=== PATIENT | female | born 1950 | race African-American/Black ===

== ENCOUNTER 2017-10-25 10:16 | Outpatient (CLI) | payer MEDICARE, OTHER | END 2017-10-25 10:17 | disposition home or self-care (01) | LOC: BICMAMMO 10:16 | PROVIDERS: ATTEND Family Medicine | DX: Z12.31 Encounter for screening mammogram for malignant neoplasm of breast (principal); Z78.0 Asymptomatic menopausal state; M85.80 Other specified disorders of bone density and structure, unspecified site | CPT/HCPCS: 77063; 77067; 77080 ==

== ENCOUNTER 2018-11-01 10:54 | Outpatient (CLI) | payer MEDICARE ==
--- NOTE | 2018-11-15 15:55 | MMO ---
Bilateral MAMMO Bilat Screen [facility]. CLINICAL HISTORY: Patient is 67 years old and is seen for screening. The patient has no family history of breast cancer. The patient has a history of right Mastectomy - malignant. VIEWS: The views performed were: left craniocaudal with tomosynthesis and left mediolateral oblique with tomosynthesis. FILMS COMPARED: The present examination has been compared to prior imaging studies performed at [facility] on 10/25/2017, at [facility] on 06/11/2014, and at [facility] on 03/04/2006 and 02/23/2010. MAMMOGRAM FINDINGS: The breast is heterogeneously dense, which could obscure a lesion on mammography. There are stable benign appearing calcifications seen in the left breast. There are no suspicious masses, suspicious calcifications, or new areas of architectural distortion. IMPRESSION: THERE IS NO MAMMOGRAPHIC EVIDENCE OF MALIGNANCY. A ROUTINE FOLLOW-UP MAMMOGRAM IN 1 YEAR IS RECOMMENDED. THE RESULTS OF THIS EXAM WERE SENT TO THE PATIENT. ACR BI-RADS Category 2 - Benign finding MAMMOGRAPHY NOTE: 1. A negative mammogram report should not delay a biopsy if a dominant of clinically suspicious mass is present. 2. Approximately 10% to 15% of breast cancers are not detected by mammography. 3. Adenosis and dense breasts may obscure an underlying neoplasm.
== END 2018-11-01 10:55 | disposition home or self-care (01) ==
LOC: BICMAMMO 10:54
PROVIDERS: ATTEND Family Medicine
DX: Z12.31 Encounter for screening mammogram for malignant neoplasm of breast (principal); Z90.11 Acquired absence of right breast and nipple
CPT/HCPCS: 77063; 77067

== ENCOUNTER 2019-12-17 00:35 | Inpatient (IN) | payer MEDICARE ==
[2019-12-17 01:15] LABS: Bacteria/HPF 4+ HPF (None Seen); Bilirubin Negative (Negative); Blood, Urine 2+ (Negative); Clarity Turbid (Clear); Glucose, Urine (Dipstick) Normal (Negative); Leukocyte 500 Leu/uL (Negative); Nitrite Negative (Negative); Protein, Urine (Dipstick) 100 mg/dL (Neg-Trace); Squamous Epithelial 0-3 HPF (0-3); WBC/HPF Greater than 50 HPF (0-3)
[2019-12-17 01:38] LABS: Anion Gap 14 mmol/L (10-20); BUN (Urea Nitrogen) 30 mg/dL (9.8-20.1); CK (CPK) 2073 U/L (29-168); Calc. Creatinine Clearance 0 mL/min (70-130); Calcium 7.5 mg/dL (7.8-10.44); Carbon Dioxide 19 mmol/L (23-31); Chloride 99 mmol/L (98-107); Estimated GFR-MDRD 31; Glucose 176 mg/dL (80-115); Potassium 3.3 mmol/L (3.5-5.1); Sodium 129 mmol/L (136-145)
[2019-12-17] MEDS ORDERED: cefTRIAXone\\ROCEPHIN 1 GM VIAL ONE (01:46)
[2019-12-17] MEDS ORDERED: Acetaminophen 325 MG TAB PO PRN (03:13)
[2019-12-17] MEDS ORDERED: Acetaminophen 650 MG Suppository PR PRN (03:13)
[2019-12-17] MEDS ORDERED: Sodium Chloride 0.9% 1,000 ML IV SCH (03:30)
[2019-12-17] MEDS ORDERED: cefTRIAXone\\ROCEPHIN 1 GM in Sodium Chloride 0.9% 100 ML IVPB SCH (04:00)
--- NOTE | 2019-12-17 04:21 | PDOC.HHP ---
Hospitalist HPI - History of Present Illness confusion History of Present Illness: Case of an 68y/o female with pmhx of htn seizures and hx of breast cancer who was brought here from freestanding ed due to confusion chills and fever. patient is a poor historian. patient states she was on her usual state of health until yesterday when she refers started with abdominal pain 10/10 in periumbilical area, non radiating not associated with nause vomiting or diarrhea , pt does refers some dysuaria. apparently at the ED patient was confused and disoriented but during my evaluation patient was oax3. patient was dx w uti and hospitalist was called for further evaluation and management Hospitalist ROS - Review of Systems All other systems reviewed; all pertinent +/- noted in HPI/Subj - Medication Medications: Active Medications Generic Name Dose Route Start Last Admin Trade Name Freq PRN Reason Stop Dose Admin Acetaminophen 650 mg 12/17/19 03:13 12/17/19 04:11 Tylenol PO 650 mg Q4H PRN Administration Headache/Fever/Mild Pain (1-3) Sodium Chloride 1,000 mls @ 100 mls/hr 12/17/19 03:30 12/17/19 04:07 Normal Saline 0.9% IV 1,000 mls .Q10H ARMANDO Administration Ceftriaxone Sodium 1 gm/ 100 mls @ 200 mls/hr 12/17/19 04:00 12/17/19 04:07 Sodium Chloride IVPB 12/17/19 07:00 100 mls NOW ARMANDO Administration Hospitalist History - Past Medical History Cardiac: reports: HTN, Hyperlipidemia [employer] GRAIN: reports: Seizure - Past Surgical History Past Surgical History: reports: no pertinent history - Family History Family History: reports: cancer, hypertension - Social History Smoking Status: Never smoker Alcohol: reports: None Drugs: reports: none Living Situation: With Family Activity level: independent ambulation - Exam General Appearance: ill appearing Eye: PERRL, anicteric sclera ENT: normocephalic atraumatic, no oropharyngeal lesions Neck: supple, symmetric, no JVD, no thyromegaly Heart: RRR, no murmur, no gallops Respiratory: CTAB, no wheezes, no rales, no ronchi Gastrointestinal: soft, non-distended, normal bowel sounds, no hepatomegaly, tender to palpation Extremities: no cyanosis, no clubbing, no edema Skin: normal turgor, no lesions Neurological: cranial nerve grossly intact, normal sensation to touch Musculoskeletal: normal tone, normal strength, no muscle wasting Psychiatric: normal affect, normal behavior, A&O x 3, oriented to person Hospitalist Results - Labs Result Diagrams: 12/17/19 01:05 Lab results: Sodium 129 mmol/L (136-145) L 12/17/19 01:05 Potassium 3.3 mmol/L (3.5-5.1) L 12/17/19 01:05 Chloride 99 mmol/L (98-107) 12/17/19 01:05 Carbon Dioxide 19 mmol/L (23-31) L 12/17/19 01:05 BUN 30 mg/dL (9.8-20.1) H 12/17/19 01:05 Creatinine 1.91 mg/dL (0.6-1.1) H 12/17/19 01:05 Glucose 176 mg/dL (80-115) H 12/17/19 01:05 Calcium 7.5 mg/dL (7.8-10.44) L 12/17/19 01:05 Creatine Kinase 2073 U/L (29-168) H 12/17/19 01:05 Urine Ketones Negative mg/dL (Negative) 12/17/19 00:54 Urine Blood 2+ (Negative) A 12/17/19 00:54 Urine Nitrite Negative (Negative) 12/17/19 00:54 Ur Leukocyte Esterase 500 Saad/uL (Negative) A 12/17/19 00:54 Urine RBC 4-6 HPF (0-3) A 12/17/19 00:54 Urine WBC Greater than 50 HPF (0-3) A 12/17/19 00:54 Ur Squamous Epith Cells 0-3 HPF (0-3) 12/17/19 00:54 Urine Bacteria 4+ HPF (None Seen) A 12/17/19 00:54 - Radiology Interpretation CT scan - chest Additional Comment: no pe CT scan - abdomen Additional Comment: perinephric stranding Hospitalist H&P A/P - Problem (1) Sepsis Code(s): A41.9 - SEPSIS, UNSPECIFIED ORGANISM Status: Acute (2) UTI (urinary tract infection) Status: Acute (3) Hyponatremia Code(s): E87.1 - HYPO-OSMOLALITY AND HYPONATREMIA Status: Acute (4) KAY (acute kidney injury) Code(s): N17.9 - ACUTE KIDNEY FAILURE, UNSPECIFIED Status: Acute (5) Hx of seizure disorder Code(s): Z86.69 - PERSONAL HISTORY OF DIS OF THE NERVOUS SYS AND SENSE ORGANS Status: Acute - Plan Plan: sepsis / uti - pt with signs of sepsis w elevated wbc fever chills and confusion, started on ivfs, cultures were taken and started on rocephin for uti , f/u cultures hyponatremia - at 129, calculated osmalality seems to be normal, will order tsh , serum and urine osmolality. might be secondary to seizure medication, f/u bmps kay - creatinine at 1.9, will start on ivfs f/u cr and u/o hx seizures - continue home meds htn - continue home meds adjust as necessary
[2019-12-17 05:05] LABS: ALT (SGPT) 49 U/L (8-55); AST (SGOT) 88 U/L (5-34); Albumin 3.7 g/dL (3.4-4.8); Alkaline Phosphatase 188 U/L (40-110); Anion Gap 18 mmol/L (10-20); BUN (Urea Nitrogen) 30 mg/dL (9.8-20.1); Bilirubin, Total 0.9 mg/dL (0.2-1.2); Calc. Creatinine Clearance 0 mL/min (70-130); Calcium 8.2 mg/dL (7.8-10.44); Carbon Dioxide 19 mmol/L (23-31); Chloride 98 mmol/L (98-107); Estimated GFR-MDRD 29; Globulin 3.9 g/dL (2.4-3.5); Glucose 141 mg/dL (80-115); Magnesium 1.9 mg/dL (1.6-2.6); Potassium 4.4 mmol/L (3.5-5.1); Protein, Total 7.6 g/dL (6.0-8.3); Sodium 131 mmol/L (136-145)
[2019-12-17 05:40] LABS: Hemoglobin 12.1 g/dL (12.0-16.0); Mean Corpuscular HGB CONC 32.9 g/dL (32.0-36.0); Mean Corpuscular Hemoglobin 28.8 pg (27.0-31.0); Mean Corpuscular Volume 87.5 fL (78.0-98.0); Mean Platelet Volume 8.4 fL (7.4-10.4); Platelet Count 142 thou/uL (130-400); RBC Distribution Width 12.4 % (11.5-14.5); Red Blood Cell (RBC) Count 4.19 mill/uL (4.20-5.40)
[2019-12-17 06:13] LABS: Band 24 % (5-11); Lymphocytes 7 % (21-51); MDiff Complete? YES; Monocytes 5 % (0-10); Neutrophil 64 % (42-75); White Blood Cell (WBC) Count 9.9 thou/uL (4.8-10.8)
[2019-12-17] MEDS ORDERED: Bisacodyl 5 MG TAB PO PRN (07:41)
[2019-12-17] MEDS ORDERED: Calcium Carbonate 500 MG ChewTAB PO PRN (07:41)
[2019-12-17] MEDS ORDERED: Ondansetron PF 4 MG/2 ML Vial IVP PRN (07:41)
[2019-12-17] MEDS ORDERED: Sodium Chloride 0.65% Nasal 44 ML BOT EA NARE PRN (07:41)
[2019-12-17] MEDS ORDERED: Zolpidem Tartrate 5 MG TAB PO PRN (07:41)
[2019-12-17] MEDS ORDERED: hydrALAZINE 20 MG/ML VIAL SLOW IVP PRN (07:41)
[2019-12-17] MEDS ORDERED: HYDROcodone/Acetaminophen 5/325 mg Tablet PO PRN (07:41)
[2019-12-17] MEDS ORDERED: Senokot S 8.6-50 MG TAB PO PRN (07:41)
[2019-12-17] MEDS ORDERED: Diabetic Tussin 200 MG/10 ML UDCUP PO PRN (07:41)
[2019-12-17] MEDS ORDERED: Loratadine 10 MG TAB PO PRN (07:41)
[2019-12-17] MEDS ORDERED: Loperamide HCl 2 MG CAP PO PRN (07:41)
[2019-12-17] MEDS ORDERED: Ondansetron ODT 4 MG TAB SL PRN (07:41)
--- NOTE | 2019-12-17 08:11 | CT ---
PRELIMINARY REPORT/[facility]/EMERGENCY AFTER HOURS PROCEDURE EXAM: CTA Chest, CT Abdomen and Pelvis with Intravenous Contrast CLINICAL HISTORY: Patient here for evaluation of altered mental status. Patient just transferred here from a freestanding ED. Sounds like the last time that she is seen normal was on Tuesday. Patient w as found to be confused. Had an elevated CK and had a low-grade fever of 100.3. Patient was confused at the outside facility. Patient is ANO x4 here. Denies any cough. Denies any exposure to COVID. Bart es any shortness of breath. Is complaining of some abdominal pain. Denies any nausea vomiting. Pain i s sharp and in the periumbilical area. Does have a history of seizures but does not know she had a se izure. Does not believe so. Patient also had an elevated d-dimer but they did not scan her secondary to a creatinine of 1.9. TECHNIQUE: Axial CTA images of the chest and CT images of the abdomen and pelvis with intravenous con trast. Reformatted images were created and reviewed. CONTRAST: With; ISOVUE 370,100mL COMPARISON: None provided. FINDINGS: VASCULATURE: AORTA Scattered atherosclerotic calcifications of the aorta. PULMONARY ARTERIES No evidence of central or segmental pulmonary embolism is seen. CHEST: Lungs: Calcified granuloma in the right lung base. The lungs are otherwise clear. No parenchymal cons olidation. No pulmonary mass. Pleural spaces: No evidence of pneumothorax. No pleural effusion. Heart and mediastinum: No cardiomegaly. No significant pericardial effusion. ABDOMEN: LIVER Unremarkable. No mass. GALLBLADDER AND BILE DUCTS No calcified stone. No ductal dilation. PANCREAS Unremarkable. No ductal dilation. SPLEEN Unremarkable. ADRENAL No mass. KIDNEYS AND URETERS Bilateral perinephric stranding, which is nonspecific. Mild left greater than rig ht ureteral enhancement with perinephric stranding. No obstructing lesion or stone. Findings may repr esent an ascending urinary tract infection and correlation with urinalysis is recommended. STOMACH AND BOWEL Small hiatal hernia. Scattered colonic diverticula without evidence of diverticulitis. No bowel obstruction. APPENDIX Normal appendix. PELVIS: URINARY BLADDER Unremarkable. REPRODUCTIVE Status post hysterectomy. PERITONEUM No free fluid. No free air. LYMPH NODES No lymphadenopathy is evident. BONES AND SOFT TISSUES Degenerative changes of the spine. MISCELLANEOUS Status post right mastectomy. Coronary artery calcifications. IMPRESSION: No pulmonary embolism. No thoracic aortic aneurysm or dissection. Bilateral perinephric stranding, which is nonspecific. Mild left greater than right ureteral enhancement with perinephric stranding. No obstructing lesion or stone. Findings may represent an ascending urinary tract infectio n and correlation with urinalysis is recommended. ELECTRONICALLY SIGNED BY: Kay Marie MD December 17, 2019 2:24:59 AM CDT FINAL REPORT I agree with the preliminary report given by Dr. Kay Marie of [facility]. There are atel ectatic changes of scarring in the right middle lobe. POS: MZA
--- NOTE | 2019-12-17 08:17 | CT ---
PRELIMINARY REPORT/[facility]/EMERGENCY AFTER HOURS PROCEDURE EXAM: CTA Chest, CT Abdomen and Pelvis with Intravenous Contrast CLINICAL HISTORY: Patient here for evaluation of altered mental status. Patient just transferred here from a freestanding ED. Sounds like the last time that she is seen normal was on Tuesday. Patient w as found to be confused. Had an elevated CK and had a low-grade fever of 100.3. Patient was confused at the outside facility. Patient is ANO x4 here. Denies any cough. Denies any exposure to COVID. Bart es any shortness of breath. Is complaining of some abdominal pain. Denies any nausea vomiting. Pain i s sharp and in the periumbilical area. Does have a history of seizures but does not know she had a se izure. Does not believe so. Patient also had an elevated d-dimer but they did not scan her secondary to a creatinine of 1.9. TECHNIQUE: Axial CTA images of the chest and CT images of the abdomen and pelvis with intravenous con trast. Reformatted images were created and reviewed. CONTRAST: With; ISOVUE 370,100mL COMPARISON: None provided. FINDINGS: VASCULATURE: AORTA Scattered atherosclerotic calcifications of the aorta. PULMONARY ARTERIES No evidence of central or segmental pulmonary embolism is seen. CHEST: Lungs: Calcified granuloma in the right lung base. The lungs are otherwise clear. No parenchymal cons olidation. No pulmonary mass. Pleural spaces: No evidence of pneumothorax. No pleural effusion. Heart and mediastinum: No cardiomegaly. No significant pericardial effusion. ABDOMEN: LIVER Unremarkable. No mass. GALLBLADDER AND BILE DUCTS No calcified stone. No ductal dilation. PANCREAS Unremarkable. No ductal dilation. SPLEEN Unremarkable. ADRENAL No mass. KIDNEYS AND URETERS Bilateral perinephric stranding, which is nonspecific. Mild left greater than ri ght ureteral enhancement with perinephric stranding. No obstructing lesion or stone. Findings may rep resent an ascending urinary tract infection and correlation with urinalysis is recommended. STOMACH AND BOWEL Small hiatal hernia. Scattered colonic diverticula without evidence of diverticuli tis. No bowel obstruction. APPENDIX Normal appendix. PELVIS: URINARY BLADDER Unremarkable. REPRODUCTIVE Status post hysterectomy. PERITONEUM No free fluid. No free air. LYMPH NODES No lymphadenopathy is evident. BONES AND SOFT TISSUES Degenerative changes of the spine. MISCELLANEOUS Status post right mastectomy. Coronary artery calcifications. IMPRESSION: No pulmonary embolism. No thoracic aortic aneurysm or dissection. Bilateral perinephric stranding, which is nonspecific. Mild left greater than right ureteral enhancem ent with perinephric stranding. No obstructing lesion or stone. Findings may represent an ascending u rinary tract infection and correlation with urinalysis is recommended. ELECTRONICALLY SIGNED BY: Kay Marie MD December 17, 2019 2:24:59 AM CDT FINAL REPORT CT ABDOMEN AND PELVIS WITH IV CONTRAST: I agree with the preliminary report given by Dr. Kay Marie of [facility]. POS: MAUREEN
[2019-12-17] MEDS ORDERED: Iopamidol 370 76% 100 ML VIAL ONE (09:20)
[2019-12-17] MEDS: Famotidine 20 MG TAB PO SCH (09:40)
[2019-12-17] MEDS: Enoxaparin Sodium 30 MG/0.3 ML SYRINGE SC SCH (09:40)
[2019-12-17] MEDS: Saccharomyces boulardii 250 MG CAP PO SCH (09:40)
[2019-12-17] MEDS: Sodium Bicarbonate Tab 325 MG TAB PO SCH ×2 (09:40→20:24)
--- NOTE | 2019-12-17 10:13 | PDOC.HOSPP ---
- Subjective Encounter Date: 12/17/19 Encounter Time: 10:00 Subjective: Patient seen and examined. pt is weak, she has fever, No overnight events - Objective Vital Signs & Weight: Vital Signs (12 hours) Temp Pulse Resp BP BP Pulse Ox 12/17/19 08:10 98.5 F 83 20 120/65 93 L 12/17/19 06:00 100.6 F H 12/17/19 03:46 100.3 F H 118 H 22 H 129/93 H 96 Weight Weight 234 lb 8 oz I&O: 12/16/19 12/17/19 12/18/19 06:59 06:59 06:59 Intake Total 720 Balance 720 Result Diagrams: 12/17/19 04:17 12/17/19 04:17 Radiology Reviewed by me: Yes EKG Reviewed by me: Yes Hospitalist ROS - Review of Systems Constitutional: reports: fever, weakness. denies: chills, sweats, malaise, other ENT: denies: ear pain, ear discharge, nose pain, nose discharge, nose congestion , mouth pain, mouth swelling, throat pain, throat swelling, other Respiratory: denies: cough, dry, shortness of breath, hemoptysis, SOB with excertion, pleuritic pain, sputum, wheezing, other Cardiovascular: denies: chest pain, palpitations, orthopnea, paroxysmal noc. dyspnea, edema, light headedness, other Gastrointestinal: denies: nausea, vomiting, abdominal pain, diarrhea, constipation, melena, hematochezia, other Genitourinary: reports: dysuria, frequency. denies: incontinence, hematuria, retention, other Musculoskeletal: denies: neck pain, shoulder pain, arm pain, back pain, hand pain, leg pain, foot pain, other Skin: denies: rash, lesions, rosenda, bruising, other - Medication Medications: Active Medications Generic Name Dose Route Start Last Admin Trade Name Freq PRN Reason Stop Dose Admin Acetaminophen 650 mg 12/17/19 03:13 12/17/19 04:11 Tylenol PO 650 mg Q4H PRN Administration Headache/Fever/Mild Pain (1-3) Enoxaparin Sodium 30 mg 12/17/19 09:00 12/17/19 09:40 Lovenox SC 30 mg 0900 ARMANDO Administration Famotidine 20 mg 12/17/19 09:00 12/17/19 09:40 Pepcid PO 20 mg DAILY ARMANDO Administration Saccharomyces Boulardii 250 mg 12/17/19 09:00 12/17/19 09:40 Florastor PO 250 mg DAILY ARMANDO Administration Sodium Bicarbonate 650 mg 12/17/19 09:00 12/17/19 09:40 Bicarbonate, Sodium PO 650 mg BID ARMANDO Administration - Exam General Appearance: NAD, awake alert Eye: PERRL, anicteric sclera ENT: normocephalic atraumatic, no oropharyngeal lesions Neck: supple, symmetric, no JVD, no thyromegaly Heart: RRR, no murmur, no gallops, no rubs Respiratory: CTAB, no wheezes, no rales, no ronchi Gastrointestinal: soft, non-tender, non-distended, normal bowel sounds Extremities: no cyanosis, no clubbing, no edema Skin: normal turgor, no lesions Neurological: no focal deficits Musculoskeletal: normal tone, normal strength Psychiatric: normal affect, normal behavior Hosp A/P (1) Sepsis Code(s): A41.9 - SEPSIS, UNSPECIFIED ORGANISM Status: Acute Qualifiers: Sepsis acute organ dysfunction status: with acute organ dysfunction Severe sepsis acute organ dysfunction type: acute renal failure Severe sepsis shock status: without septic shock (2) Hypokalemia Code(s): E87.6 - HYPOKALEMIA Status: Acute (3) Rhabdomyolysis Code(s): M62.82 - RHABDOMYOLYSIS Status: Acute (4) Abnormal LFTs Code(s): R94.5 - ABNORMAL RESULTS OF LIVER FUNCTION STUDIES Status: Acute (5) KAY (acute kidney injury) Code(s): N17.9 - ACUTE KIDNEY FAILURE, UNSPECIFIED Status: Acute (6) Hyponatremia Code(s): E87.1 - HYPO-OSMOLALITY AND HYPONATREMIA Status: Acute (7) UTI (urinary tract infection) Status: Acute Qualifiers: Urinary tract infection type: acute cystitis Hematuria presence: without hematuria Qualified Code(s): N30.00 - Acute cystitis without hematuria (8) Obesity (BMI 30-39.9) Code(s): E66.9 - OBESITY, UNSPECIFIED Status: Chronic - Plan old records reviewed/req, continue antibiotics, PT/OT change to inpt status continue rocephin continue IVF repeat labs start PT/OT
[2019-12-17] MEDS: Sodium Chloride 0.45% 1,000 ML IV SCH ×2 (20:12→20:43)
[2019-12-17 20:17] VITALS: BMI 36.6
[2019-12-17] MEDS: cefTRIAXone\\ROCEPHIN 2 GM in Sodium Chloride 0.9% 100 ML IVPB SCH (22:32)
[2019-12-18] MEDS: Sodium Chloride 0.45% 1,000 ML IV SCH ×3 (05:28→16:53)
[2019-12-18 06:50] LABS: #Lymphocytes 0.8 thou/uL (1.20-3.40); %Basophils 0.3 % (0.0-1.0); %Eosinophils 0.7 % (0.0-10.0); %Lymphocytes 11.1 % (21.0-51.0); %Monocytes 14.6 % (0.0-10.0); %Neutrophils 73.3 % (42.0-75.0); Hemoglobin 10.4 g/dL (12.0-16.0); Mean Corpuscular HGB CONC 32.8 g/dL (32.0-36.0); Mean Corpuscular Hemoglobin 28.7 pg (27.0-31.0); Mean Corpuscular Volume 87.6 fL (78.0-98.0); Mean Platelet Volume 7.8 fL (7.4-10.4); Platelet Count 157 thou/uL (130-400); RBC Distribution Width 12.5 % (11.5-14.5); Red Blood Cell (RBC) Count 3.63 mill/uL (4.20-5.40); White Blood Cell (WBC) Count 6.9 thou/uL (4.8-10.8)
[2019-12-18 07:02] LABS: Lactic Acid 0.9 mmol/L (0.5-2.2)
[2019-12-18 07:08] LABS: ALT (SGPT) 36 U/L (8-55); AST (SGOT) 68 U/L (5-34); Alkaline Phosphatase 146 U/L (40-110); Anion Gap 14 mmol/L (10-20); BUN (Urea Nitrogen) 25 mg/dL (9.8-20.1); Bilirubin, Total 0.4 mg/dL (0.2-1.2); CK (CPK) 1454 U/L (29-168); Calc. Creatinine Clearance 56 mL/min (70-130); Calcium 7.9 mg/dL (7.8-10.44); Carbon Dioxide 20 mmol/L (23-31); Chloride 99 mmol/L (98-107); Estimated GFR-MDRD 39; Globulin 3.4 g/dL (2.4-3.5); Glucose 126 mg/dL (80-115); Phosphorus 2.3 mg/dL (2.3-4.7); Potassium 3.2 mmol/L (3.5-5.1); Protein, Total 6.4 g/dL (6.0-8.3); Sodium 130 mmol/L (136-145)
[2019-12-18] MEDS ORDERED: Potassium Chloride 20 MEQ TAB PO SCH (07:30)
[2019-12-18] MEDS: Famotidine 20 MG TAB PO SCH (08:50)
[2019-12-18] MEDS: Saccharomyces boulardii 250 MG CAP PO SCH (08:50)
[2019-12-18] MEDS: Enoxaparin Sodium 30 MG/0.3 ML SYRINGE SC SCH (08:51)
[2019-12-18] MEDS: Sodium Bicarbonate Tab 325 MG TAB PO SCH ×2 (08:51→20:52)
[2019-12-18] MEDS ORDERED: Prevnar 13-Val Conj/PF 0.5 ML SYRINGE IM ONE (09:00)
--- NOTE | 2019-12-18 09:35 | PDOC.HOSPP ---
- Subjective Encounter Date: 12/18/19 Encounter Time: 07:10 Subjective: Patient seen and examined. No new complaints. No overnight events - Objective Vital Signs & Weight: Vital Signs (12 hours) Temp Pulse Resp BP BP Pulse Ox 12/18/19 04:00 99.4 F 80 16 137/62 94 L 12/18/19 00:00 99.6 F 91 20 155/72 H 96 Weight Weight 234 lb I&O: 12/17/19 12/18/19 12/19/19 06:59 06:59 06:59 Intake Total 705 664 2389 Output Total 500 Balance 720 -260 1250 Result Diagrams: 12/18/19 06:24 12/18/19 06:24 Hospitalist ROS - Review of Systems ENT: denies: ear pain, ear discharge, nose pain, nose discharge, nose congestion , mouth pain, mouth swelling, throat pain, throat swelling, other Respiratory: denies: cough, dry, shortness of breath, hemoptysis, SOB with excertion, pleuritic pain, sputum, wheezing, other Cardiovascular: denies: chest pain, palpitations, orthopnea, paroxysmal noc. dyspnea, edema, light headedness, other Gastrointestinal: denies: nausea, vomiting, abdominal pain, diarrhea, constipation, melena, hematochezia, other Genitourinary: denies: dysuria, frequency, incontinence, hematuria, retention, other Musculoskeletal: denies: neck pain, shoulder pain, arm pain, back pain, hand pain, leg pain, foot pain, other - Medication Medications: Active Medications Generic Name Dose Route Start Last Admin Trade Name Freq PRN Reason Stop Dose Admin Acetaminophen 650 mg 12/17/19 03:13 12/17/19 04:11 Tylenol PO 650 mg Q4H PRN Administration Headache/Fever/Mild Pain (1-3) Enoxaparin Sodium 30 mg 12/17/19 09:00 12/18/19 08:51 Lovenox SC 30 mg 0900 ARMANDO Administration Famotidine 20 mg 12/17/19 09:00 12/18/19 08:50 Pepcid PO 20 mg DAILY ARMANDO Administration Ceftriaxone Sodium 2 gm/ 100 mls @ 200 mls/hr 12/17/19 22:00 12/17/19 22:32 Sodium Chloride IVPB 100 mls 2200 ARMANDO Administration Sodium Chloride 1,000 mls @ 125 mls/hr 12/17/19 07:45 12/18/19 08:52 1/2 Normal Saline IV 1,000 mls .Q8H ARMANDO Administration Potassium Chloride 40 meq 12/18/19 07:30 12/18/19 08:51 K-Dur PO 12/18/19 10:00 40 meq NOW ARMANDO Administration Saccharomyces Boulardii 250 mg 12/17/19 09:00 12/18/19 08:50 Florastor PO 250 mg DAILY ARMANDO Administration Sodium Bicarbonate 650 mg 12/17/19 09:00 12/18/19 08:51 Bicarbonate, Sodium PO 650 mg BID ARMANDO Administration Sodium Chloride 10 ml 12/18/19 09:00 12/18/19 08:51 Flush - Normal Saline IVF 10 ml Q12HR ARMANDO Administration - Exam General Appearance: NAD, awake alert Eye: PERRL, anicteric sclera ENT: normocephalic atraumatic, no oropharyngeal lesions Neck: supple, symmetric, no JVD, no thyromegaly Heart: RRR, no murmur, no gallops, no rubs Respiratory: CTAB, no wheezes, no rales, no ronchi Gastrointestinal: soft, non-tender, non-distended, normal bowel sounds Extremities: no cyanosis, no clubbing, no edema Skin: normal turgor, no lesions Neurological: no focal deficits Musculoskeletal: normal tone, normal strength Psychiatric: normal affect, normal behavior Hosp A/P (1) Sepsis Code(s): A41.9 - SEPSIS, UNSPECIFIED ORGANISM Status: Acute Qualifiers: Sepsis acute organ dysfunction status: with acute organ dysfunction Severe sepsis acute organ dysfunction type: acute renal failure Severe sepsis shock status: without septic shock (2) Hypokalemia Code(s): E87.6 - HYPOKALEMIA Status: Acute (3) Rhabdomyolysis Code(s): M62.82 - RHABDOMYOLYSIS Status: Acute (4) Abnormal LFTs Code(s): R94.5 - ABNORMAL RESULTS OF LIVER FUNCTION STUDIES Status: Acute (5) KAY (acute kidney injury) Code(s): N17.9 - ACUTE KIDNEY FAILURE, UNSPECIFIED Status: Acute (6) Hyponatremia Code(s): E87.1 - HYPO-OSMOLALITY AND HYPONATREMIA Status: Acute (7) UTI (urinary tract infection) Status: Acute Qualifiers: Urinary tract infection type: acute cystitis Hematuria presence: without hematuria Qualified Code(s): N30.00 - Acute cystitis without hematuria (8) Obesity (BMI 30-39.9) Code(s): E66.9 - OBESITY, UNSPECIFIED Status: Chronic - Plan old records reviewed/req, continue antibiotics change to inpt status continue rocephin continue IVF repeat labs start PT/OT 12/18/19 today will continue IVF await culture result will replace potassium continue rocephin she wants to go home will decide later if stays will repeat labs tomorrow
[2019-12-18] MEDS: Simvastatin 20 MG TAB PO SCH (20:52)
[2019-12-18] MEDS: levETIRAcetam 500 MG TAB PO SCH (20:52)
[2019-12-18] MEDS: Ezetimibe 10 MG TAB PO SCH (20:52)
[2019-12-18] MEDS: busPIRone HCl 10 MG TAB PO SCH (20:53)
[2019-12-18] MEDS: cefTRIAXone\\ROCEPHIN 2 GM in Sodium Chloride 0.9% 100 ML IVPB SCH (21:00)
[2019-12-19] MEDS: Sodium Chloride 0.45% 1,000 ML IV SCH ×2 (01:56→08:47)
[2019-12-19 06:22] LABS: #Basophils 0.1 thou/uL (0.0-0.2); #Eosinphils 0.1 thou/uL (0.0-0.7); #Lymphocytes 1.1 thou/uL (1.20-3.40); #Monocytes 1.2 thou/uL (0.11-0.59); #Neutrophils 5.6 thou/uL (1.40-6.50); %Basophils 0.7 % (0.0-1.0); %Eosinophils 0.8 % (0.0-10.0); %Lymphocytes 13.5 % (21.0-51.0); %Monocytes 14.8 % (0.0-10.0); %Neutrophils 70.1 % (42.0-75.0); Mean Corpuscular HGB CONC 31.5 g/dL (32.0-36.0); Mean Corpuscular Hemoglobin 27.4 pg (27.0-31.0); Mean Corpuscular Volume 86.9 fL (78.0-98.0); Mean Platelet Volume 7.9 fL (7.4-10.4); Platelet Count 188 thou/uL (130-400); RBC Distribution Width 12.5 % (11.5-14.5); Red Blood Cell (RBC) Count 3.66 mill/uL (4.20-5.40)
[2019-12-19 06:45] LABS: Anion Gap 15 mmol/L (10-20); BUN (Urea Nitrogen) 19 mg/dL (9.8-20.1); CK (CPK) 740 U/L (29-168); Calc. Creatinine Clearance 64 mL/min (70-130); Calcium 7.8 mg/dL (7.8-10.44); Carbon Dioxide 20 mmol/L (23-31); Chloride 100 mmol/L (98-107); Estimated GFR-MDRD 46; Glucose 126 mg/dL (80-115); Potassium 3.5 mmol/L (3.5-5.1); Sodium 131 mmol/L (136-145)
[2019-12-19] MEDS: Enoxaparin Sodium 30 MG/0.3 ML SYRINGE SC SCH (08:47)
[2019-12-19] MEDS: levETIRAcetam 500 MG TAB PO SCH (08:52)
[2019-12-19] MEDS: Famotidine 20 MG TAB PO SCH (08:52)
[2019-12-19] MEDS: Ezetimibe 10 MG TAB PO SCH (08:52)
[2019-12-19] MEDS: busPIRone HCl 10 MG TAB PO SCH (08:52)
[2019-12-19] MEDS: Sodium Bicarbonate Tab 325 MG TAB PO SCH (08:52)
[2019-12-19] MEDS: Saccharomyces boulardii 250 MG CAP PO SCH (08:52)
[2019-12-19] MEDS: Simvastatin 20 MG TAB PO SCH (08:53)
[2019-12-19 08:59] VITALS: BP 161/77; TEMP 98.3
[2019-12-19] MEDS ORDERED: Losartan 25 MG TAB PO SCH (09:00)
--- NOTE | 2019-12-20 02:57 | DIS ---
DATE OF ADMISSION: 12/17/2019 DATE OF DISCHARGE: 12/19/2019 REASON FOR HOSPITALIZATION: Urinary tract infection. SIGNIFICANT FINDINGS: The patient was found to have urinary tract infection growing E coli, which was sensitive to oral antibiotics. PROCEDURES PERFORMED AND TREATMENTS RENDERED: The patient was admitted to [facility] on 12/17/2019, please see full history and physical from Dr. Calabrese for full details. The patient was started on broad-spectrum IV antibiotics and appropriate culture data was obtained. The patient's blood cultures remained negative at 48 hours. The patient's final urinalysis and urinary culture confirmed urinary tract infection with E coli, which was sensitive to oral antibiotics. The patient returns to her regular state of well-being and she was recommended safe for discharge. The patient was evaluated by Physical Therapy and Occupational Therapy, who thought that she might benefit from home health care for home PT and OT Services in addition to nursing services. The patient refused any PT and OT services and declined nursing services and refused home health care. The patient states that she has numerous family members, who can help her around the house and she has good social support. Prescriptions were sent to the patient's preferred pharmacy for her convenience. CONDITION ON DISCHARGE: Stable. SPECIFIC INSTRUCTIONS FOR THE PATIENT/FAMILY: 1. The patient is recommended to complete a full course of oral antibiotics. 2. The patient recommended to take all other medications as directed, to be re-evaluated by her primary care physician in the next 5 to 7 days. 3. The patient recommended to follow up with primary care physician in the next 5 to 7 days. 4. The patient recommended to follow up with all other specialists in the outpatient setting as directed. 5. The patient recommended to return to acute care hospital immediately if signs or symptoms return, worsen, or any other new symptoms occur. DISCHARGE MEDICATIONS: 1. Losartan/hydrochlorothiazide one tablet p.o. daily. 2. Ezetimibe/simvastatin one tablet p.o. b.i.d. 3. Buspirone 10 mg p.o. b.i.d. 4. Keppra 500 mg one tablet p.o. b.i.d. 5. Cefpodoxime 200 mg one tablet p.o. b.i.d. for 6 days, 12 tablets were prescribed. This is the only new medication or changed medication from home medications. Greater than 38 minutes spent coordinating care and discharge process for this patient. Job ID: [id number]
--- NOTE | 2019-12-20 08:48 | PQF ---
CARLA PACKER ERIK [id number] [id number] CLINICAL DOCUMENTATION CLARIFICATION FORM: POST DISCHARGE Addendum to original discharge summary date: ____ Late entry note date: __ DATE:12/20/2019 ATTN: Ryan Alex Please exercise your independent, professional judgment in responding to the clarification form. Clinical indicators are provided on the bottom of this form for your review Please check appropriate box(s): Encephalopathy: Etiology: [ ] Metabolic [ ] Toxic [ ] Septic [ ] Unspecified [ ] Other (please specify) [ ] Transient Alteration of Awareness [ ] Other diagnosis [ ] Unable to determine In addition, please specify: Present on Admission (POA): [ ] Yes [ ] No [ ] Unable to determine For continuity of documentation, please document condition throughout progress notes and discharge summary. Thank You. CLINICAL INDICATORS - SIGNS / SYMPTOMS / LABS Blood culture 12/16 No growth at 48 hrs Vital signs 12/16 BP 139/74, Pulse 95, Resp 24, temp 98.8 ED notes p8 12/16 Altred mental status, hyponatremia, Rhado, UTI H&P p4 12/16 Pt with sepsis with elevated WBC fever chills and confusion RISK FACTORS H&P p1 12/16 68 year-old Female H&P p1 12/16 Seizure disorder H&P p1 12/16 HTN H&P p1 12/16 hx of breast cancer H&P p4 12/16 Sepsis H&P p4 12/16 UTI H&P p4 12/16 KAY H&P p4 12/16 Hyponatremia TREATMENTS: OCT 10 IV Rocephin 1gm OCT 10 IV NS 1L Blood culture 12/16 (This form is maintained as a part of the permanent medical record) 2014 [employer]. All Rights Reserved [email or web address]
--- NOTE | 2019-12-20 08:49 | PQF ---
CARLA PACKER ERIK [id number] ONC- 132 [id number] CLINICAL DOCUMENTATION CLARIFICATION FORM: POST DISCHARGE Addendum to original discharge summary date: ____ Late entry note date: __ DATE:12/20/2019 ATTN: Ryan Alex Please exercise your independent, professional judgment in responding to the clarification form. Clinical indicators are provided on the bottom of this form for your review Please check appropriate box(s) to clarify if the following diagnosis has been ruled in or ruled out: Sepsis [ ] Ruled in diagnosis [ ] Continue to treat [ ] Resolved [ ] Ruled out diagnosis [ ] Cannot rule out diagnosis [ ] Other diagnosis [ ] Unable to determine For continuity of documentation, please document condition throughout progress notes and discharge summary. Thank You. CLINICAL INDICATORS - SIGNS / SYMPTOMS / LABS Laboratory 12/16 WBC 9.9, Neutrophils 64, band 24, Lactic acid 2.7 Blood culture 12/16 No growth at 48 hrs Urine Culture 12/16 E Coli Vital signs 12/16 BP 139/74, Pulse 95, Resp 24, temp 98.8 ED notes p8 12/16 Altered mental status, hyponatremia, Rhado, UTI H&P p4 12/16 Pt with sepsis with elevated WBC fever chills and confusion H&P p4 12/16 Sepsis/ UTI H&P p4 12/16 KAY RISK FACTORS H&P p1 12/16 68 year-old Female H&P p1 12/16 Seizure disorder H&P p1 12/16 HTN H&P p1 12/16 hx of breast cancer H&P p4 12/16 UTI PN p4 12/16 Obesity TREATMENTS OCT 10 IV Rocephin 1gm OCT 10 IV NS 1L Blood culture 12/16 Urine Culture 12/16 (This form is maintained as a part of the permanent medical record) 2014 [employer]. All Rights Reserved Marisa MTDRadha
--- NOTE | 2019-12-22 14:44 | EKG ---
Test Reason : AMS Blood Pressure : / mmHG Vent. Rate : 093 BPM Atrial Rate : 093 BPM P-R Int : 138 ms QRS Dur : 086 ms QT Int : 368 ms P-R-T Axes : 054 -10 011 degrees QTc Int : 457 ms Normal sinus rhythm Normal ECG Confirmed by DAYSI SANDERSON M.D. ([id number]), business editor DOMINIQUE SHOEMAKER ([id number]) on 12/22/2019 2:44:20 PM Referred By: AIDEN SANDERSON Confirmed By:DAYSI SANDERSON M.D.
== END 2019-12-19 12:30 | disposition home or self-care (01) | DRG 683 ==
LOC: ERS 00:35 → ONC 02:10 → OBSVTOIN 02:10
PROVIDERS: ADMIT Internal Medicine; ATTEND Internal Medicine
DX: N17.9 Acute kidney failure, unspecified (principal); N30.00 Acute cystitis without hematuria; E87.1 Hypo-osmolality and hyponatremia; M62.82 Rhabdomyolysis; G40.909 Epilepsy, unspecified, not intractable, without status epilepticus; I10 Essential (primary) hypertension; E78.5 Hyperlipidemia, unspecified; E87.6 Hypokalemia; R94.5 Abnormal results of liver function studies; E66.9 Obesity, unspecified; B96.20 Unspecified Escherichia coli [E. coli] as the cause of diseases classified elsewhere; Z85.3 Personal history of malignant neoplasm of breast; Z68.36 Body mass index [BMI] 36.0-36.9, adult; Z79.899 Other long term (current) drug therapy
CPT/HCPCS: 36415; 51701; 71275; 74177; 80048; 80053; 81003; 81015; 82550; 83605; 83735; 83930; 83935; 84100; 84443; 85025; 87040; 87077; 87086; 87186; 93005; 96365; A4353; J0696; J1650; J3490; Q9967

== ENCOUNTER 2020-06-27 09:37 | Outpatient (CLI) | payer MEDICARE ==
--- NOTE | 2020-06-27 10:30 | MMO ---
Bilateral MAMMO Bilat Screen [facility]DI+[facility]A. CLINICAL HISTORY: Patient is 69 years old and is seen for screening. The patient has no family history of breast cancer. The patient has a history of right Mastectomy - malignant. VIEWS: The views performed were: left craniocaudal with tomosynthesis and left mediolateral oblique with tomosynthesis. FILMS COMPARED: The present examination has been compared to prior imaging studies performed at [facility] on 10/25/2017 and 11/01/2018, at [facility] on 06/11/2014, and at [facility] on 02/23/2010. This study has been interpreted with the assistance of computer-aided detection. MAMMOGRAM FINDINGS: The breast is heterogeneously dense, which could obscure a lesion on mammography. Increasing calcifications upper mid left breast with evidence of linear forms. Recommend mag views. In the right breast, there are no suspicious masses, calcifications or areas of architectural distortion. IMPRESSION: FINDING IN THE LEFT BREAST REQUIRES ADDITIONAL EVALUATION. MAGNIFICATION VIEWS ARE RECOMMENDED. THE RESULTS OF THIS EXAM WERE SENT TO THE PATIENT. ACR BI-RADS Category 0 - Incomplete: Need additional imaging evaluation. [facility] will notify the patient of the need for additional imaging services. MAMMOGRAPHY NOTE: 1. A negative mammogram report should not delay a biopsy if a dominant of clinically suspicious mass is present. 2. Approximately 10% to 15% of breast cancers are not detected by mammography. 3. Adenosis and dense breasts may obscure an underlying neoplasm. Reported by: MAXWELL WARD MD Electonically Signed: [id number]
== END 2020-06-27 09:38 | disposition home or self-care (01) ==
LOC: BICMAMMO 09:37
PROVIDERS: ATTEND Family Medicine
DX: Z12.31 Encounter for screening mammogram for malignant neoplasm of breast (principal); Z85.3 Personal history of malignant neoplasm of breast; Z90.11 Acquired absence of right breast and nipple
CPT/HCPCS: 77063; 77067

== ENCOUNTER 2020-07-08 13:24 | Outpatient (CLI) | payer MEDICARE ==
--- NOTE | 2020-07-08 14:17 | MMO ---
Left Breast MAMMO Unilat Diag DDI LT+ADELA. CLINICAL HISTORY: Patient is 69 years old and is seen for diagnostic exam. The patient has no family history of breast cancer. The patient has a history of right Mastectomy - malignant. VIEWS: The views performed were: left craniocaudal spot compression magnification; left mediolateral spot compression magnification; and left mediolateral with tomosynthesis. FILMS COMPARED: The present examination has been compared to prior imaging studies performed at [facility] on 10/25/2017, 11/01/2018 and 06/27/2020, and at [facility] on 06/11/2014. This study has been interpreted with the assistance of computer-aided detection. MAMMOGRAM FINDINGS: The breast is heterogeneously dense, which could obscure a lesion on mammography. Additional views were performed. The calcs in the 12:00 position have an indeterminate and should be biopsied. IMPRESSION: FINDING IN THE LEFT BREAST IS SUSPICIOUS. A STEREOTACTIC BREAST BIOPSY IS RECOMMENDED. THE RESULTS OF THIS EXAM WERE SENT TO THE PATIENT. ACR BI-RADS Category 4 - Suspicious abnormality - biopsy should be considered D/W pt in person at 2:15 pm. MAMMOGRAPHY NOTE: 1. A negative mammogram report should not delay a biopsy if a dominant of clinically suspicious mass is present. 2. Approximately 10% to 15% of breast cancers are not detected by mammography. 3. Adenosis and dense breasts may obscure an underlying neoplasm. Reported by: ELIZABETH FREEDMAN MD Electonically Signed: [id number]
== END 2020-07-08 13:25 | disposition home or self-care (01) ==
LOC: BICMAMMO 13:24
PROVIDERS: ATTEND Family Medicine
DX: R92.1 Mammographic calcification found on diagnostic imaging of breast (principal)
CPT/HCPCS: 77065; G0279

== ENCOUNTER → 2020-07-24 | Day surgery (SDC) | payer MEDICARE ==
--- NOTE | 2020-07-24 08:40 | MMO ---
Exam: Left breast stereotactic biopsy, specimen radiograph, postprocedure mammogram HISTORY: Left breast calcifications. COMPARISON: 07/08/2020, 06/27/2020. FINDINGS: Successful left breast are detected biopsy. Calcifications are present. Postbiopsy clip was placed. TECHNIQUE: Consent obtained to perform a left breast stereotactic biopsy. Left breast was prepped and draped in a sterile fashion. 1% lidocaine, buffered with sodium bicarbonate was used for local anesthesia. Under mammographic guidance, the stereotactic needle was advanced in the pre and post fir ing position. A total of six 10-gauge core biopsy samples were obtained. Specimen radiograph was performed. Biopsy clip was placed. No immediate or postprocedure complications. Specimen radiograph: Calcifications are present. Post procedure mammogram: Expected postoperative changes. Biopsy clip is appropriately located. IMPRESSION: Successful left breast stereotactic biopsy. Transcribed Date/Time: 07/24/2020 9:01 AM
== END ==
LOC: MAMMO 07:09
PROVIDERS: ATTEND Family Medicine
PROC: 0H9U3ZX Drainage of Left Breast, Percutaneous Approach, Diagnostic (ICD-10-PCS; principal; 2020-07-24)
DX: D05.12 Intraductal carcinoma in situ of left breast (principal); R92.1 Mammographic calcification found on diagnostic imaging of breast
CPT/HCPCS: 19081; 76098; 88305

== ENCOUNTER 2020-08-27 07:31 | Outpatient (CLI) | payer MEDICARE ==
[2020-08-27 12:41] LABS: #Eosinphils 0.1 10x3/uL (0.0-0.5); #Monocytes 0.4 10x3/uL (0.0-1.1); #Neutrophils 2.8 10x3/uL (1.5-8.4); %Basophils 0.7 % (0.0-2.0); %Lymphocytes 26.2 % (18.0-47.0); %Monocytes 8.8 % (0.0-10.0); %Neutrophils 62.1 % (40.0-75.0); Hemoglobin 12.1 g/dL (12.0-16.0); Mean Corpuscular HGB CONC 31.8 G/DL (32.0-36.0); Mean Corpuscular Hemoglobin 27.7 PG (27.0-33.0); Mean Corpuscular Volume 87.2 fl (80.0-100.0); Mean Platelet Volume 10.3 fl (7.4-10.4); Platelet Count 247 10x3/uL (130-400); RBC Distribution Width 12.7 % (11.5-14.5); Red Blood Cell (RBC) Count 4.37 10x6/uL (3.90-5.20); White Blood Cell (WBC) Count 4.5 10x3/uL (4.5-11.0)
[2020-08-27 12:50] LABS: Anion Gap 14 mmol/L (10-20); BUN (Urea Nitrogen) 17 mg/dL (9.8-20.1); Calc. Creatinine Clearance 0 mL/min (70-130); Carbon Dioxide 28 mmol/L (23-31); Chloride 101 mmol/L (98-107); Glucose 136 mg/dL (83-110); Potassium 4.7 mmol/L (3.5-5.1); Sodium 138 mmol/L (136-145)
[2020-08-29 00:14] LABS: SARS-CoV-2 PCR by NAA Not Detected (NotDetected)
--- NOTE | 2020-08-29 12:24 | EKG ---
Test Reason : Blood Pressure : / mmHG Vent. Rate : 091 BPM Atrial Rate : 091 BPM P-R Int : 126 ms QRS Dur : 078 ms QT Int : 350 ms P-R-T Axes : 117 -06 000 degrees QTc Int : 430 ms Normal sinus rhythm Nonspecific T wave abnormality Abnormal ECG Confirmed by CATALINO MCCRAY ([id number]) on 08/29/2020 12:24:13 PM Referred By: ARUNA Confirmed By:CATALINO MCCRAY
== END 2020-08-27 07:32 | disposition home or self-care (01) ==
LOC: LABBT 07:31
PROVIDERS: ATTEND Surgery
DX: Z01.818 Encounter for other preprocedural examination (principal); Z20.822 Contact with and (suspected) exposure to COVID-19; D05.12 Intraductal carcinoma in situ of left breast
CPT/HCPCS: 80048; 85025; 93005; U0003; U0005; 87635; 93010

== ENCOUNTER 2021-01-29 14:47 | Outpatient (CLI) | payer MEDICARE | END 2021-01-29 14:48 | disposition home or self-care (01) | LOC: BICMAMMO 14:47 | PROVIDERS: ATTEND Internal Medicine Hematology & Oncology | DX: M85.851 Other specified disorders of bone density and structure, right thigh (principal); M85.852 Other specified disorders of bone density and structure, left thigh | CPT/HCPCS: 77080 ==

== ENCOUNTER 2022-09-14 13:13 | Outpatient (CLI) | payer MEDICARE ==
[~2022-09-14 13:13] MED LIST: Magnevist 469MG/ML 20 ML VIAL ONE
== END 2022-09-14 13:14 | disposition home or self-care (01) ==
LOC: MRI 13:13
PROVIDERS: ATTEND Family Medicine
DX: F03.90 Unspecified dementia, unspecified severity, without behavioral disturbance, psychotic disturbance, mood disturbance, and anxiety (principal); G93.6 Cerebral edema; Z98.890 Other specified postprocedural states
CPT/HCPCS: 70553; A9579

== ENCOUNTER 2022-09-15 13:43 | Outpatient (CLI) | payer MEDICARE | END 2022-09-15 13:44 | disposition home or self-care (01) | LOC: BICCT 13:43 | PROVIDERS: ATTEND Family Medicine | DX: G93.6 Cerebral edema (principal); I67.82 Cerebral ischemia; G93.89 Other specified disorders of brain; R90.89 Other abnormal findings on diagnostic imaging of central nervous system; Z98.890 Other specified postprocedural states | CPT/HCPCS: 70450 ==

== ENCOUNTER 2022-10-12 09:57 | Outpatient (CLI) | payer MEDICARE | END 2022-10-12 09:58 | disposition home or self-care (01) | LOC: BICMAMMO 09:57 | PROVIDERS: ATTEND Internal Medicine Hematology & Oncology | DX: Z12.31 Encounter for screening mammogram for malignant neoplasm of breast (principal); D05.82 Other specified type of carcinoma in situ of left breast; M85.89 Other specified disorders of bone density and structure, multiple sites; T38.6X5A Adverse effect of antigonadotrophins, antiestrogens, antiandrogens, not elsewhere classified, initial encounter; Z98.890 Other specified postprocedural states | CPT/HCPCS: 77065; 77080; G0279 ==

== ENCOUNTER 2023-06-24 07:47 | Inpatient (IN) | payer MEDICARE ==
[2023-06-24 08:52] LABS: #Monocytes 0.8 thou/uL (0.11-0.59); #Neutrophils 8.3 thou/uL (1.40-6.50); %Basophils 0.4 % (0.0-1.0); %Eosinophils 0.3 % (0.0-10.0); %Lymphocytes 6.8 % (21.0-51.0); %Monocytes 7.9 % (0.0-10.0); %Neutrophils 84.3 % (42.0-75.0); Hemoglobin 14.4 g/dL (12.0-16.0); Mean Corpuscular HGB CONC 33.5 g/dL (32.0-36.0); Mean Corpuscular Hemoglobin 28.1 pg (27.0-31.0); Mean Platelet Volume 10.5 fL (7.4-10.4); Platelet Count 209 10x3/uL (130-400); RBC Distribution Width 13.1 % (11.5-14.5); Red Blood Cell (RBC) Count 5.12 mill/uL (4.20-5.40); White Blood Cell (WBC) Count 9.9 10x3/uL (4.8-10.8)
[2023-06-24 09:18] LABS: Troponin I 0.019 ng/mL (< 0.028)
[2023-06-24 09:22] LABS: ALT (SGPT) 28 U/L (8-55); AST (SGOT) 49 U/L (5-34); Albumin 5.1 g/dL (3.4-4.8); Alkaline Phosphatase 155 U/L (40-110); Anion Gap 18 mmol/L (10-20); BUN (Urea Nitrogen) 20 mg/dL (9.8-20.1); Bilirubin, Total 0.9 mg/dL (0.2-1.2); CK (CPK) 864 U/L (29-168); Calc. Creatinine Clearance 0 mL/min (70-130); Calcium 10.9 mg/dL (7.8-10.44); Carbon Dioxide 23 mmol/L (23-31); Chloride 104 mmol/L (98-107); Estimated GFR 29; Globulin 4.1 g/dL (2.4-3.5); Glucose 114 mg/dL (83-110); Lipase 22 U/L (8-78); Magnesium 1.7 mg/dL (1.6-2.6); Potassium 4.1 mmol/L (3.5-5.1); Protein, Total 9.2 g/dL (5.8-8.1); Sodium 141 mmol/L (136-145)
[2023-06-24 12:30] LABS: Bacteria/HPF None Seen HPF (None Seen); Bilirubin Negative (Negative); Blood, Urine 2+ (Negative); CAUTI Indications for Culture Alt mental st,lethar; Clarity Clear (Clear); Glucose, Urine (Dipstick) Normal (Negative); Ketone, Urine Negative (Negative); Leukocyte Negative Leu/uL (Negative); Nitrite Negative (Negative); Protein, Urine (Dipstick) 50 mg/dL (Neg-Trace); RBC/HPF 0-3 HPF (0-3); Specific Gravity, Urine 1.014 (1.002-1.036); Squamous Epithelial 0-3 HPF (0-3); Urobilinogen Normal mg/dL (Less than 2); WBC/HPF 0-3 HPF (0-3)
[2023-06-24 12:35] LABS: Urine Culture Reflex No No
[2023-06-24] MEDS ORDERED: LORazepam 2 MG/ML SYR.(CARPUJECT) ONE (14:27)
[2023-06-24] MEDS ORDERED: Ondansetron ODT 4 MG TAB PO PRN (14:57)
[2023-06-24] MEDS ORDERED: Ondansetron PF 4 MG/2 ML Vial IVP PRN (14:57)
[2023-06-24] MEDS ORDERED: Acetaminophen 325 MG TAB PO PRN (14:57)
[2023-06-24] MEDS ORDERED: Calcium Carbonate 500 MG ChewTAB PO PRN (14:57)
[2023-06-24] MEDS ORDERED: Lorazepam 2 MG/ML VIAL SLOW IVP PRN (16:03)
[2023-06-24] MEDS ORDERED: hydrALAZINE 20 MG/ML VIAL SLOW IVP PRN (16:05)
[2023-06-24 16:20] LABS: Magnesium 1.6 mg/dL (1.6-2.6)
[2023-06-24 16:24] LABS: Troponin I 0.033 ng/mL (< 0.028)
[2023-06-24] MEDS ORDERED: levETIRAcetam 500 MG/5 ML VIAL SLOW IVP SCH (16:30)
[2023-06-24 17:09] LABS: Amphetamine Not Detected (NotDetected); Barbiturates Screen Not Detected (NotDetected); Benzodiazepine Screen Not Detected (NotDetected); Cocaine Metabolite Screen Not Detected (NotDetected); Methadone Not Detected (NotDetected); Methamphetamine Not Detected (NotDetected); Opiate Screen Not Detected (NotDetected); Oxycodone Screen Not Detected (NotDetected); Phencyclidine (PCP) Not Detected (NotDetected); THC/Cannabinoid Screen Not Detected (NotDetected); Tricyclic Screen Not Detected (NotDetected)
[2023-06-24 17:11] LABS: Phosphorus 2.8 mg/dL (2.3-4.7)
[2023-06-24] MEDS: Folic Acid 1 MG TAB PO SCH (20:55)
[2023-06-24] MEDS: Senokot S 8.6-50 MG TAB PO SCH (20:55)
[2023-06-24] MEDS: levETIRAcetam 500 MG/5 ML VIAL SLOW IVP SCH (20:56)
[2023-06-24] MEDS: Multivit, Therapeutic 1 TAB PO SCH (20:56)
[2023-06-24] MEDS: Cyanocobalamin (Vitamin B-12) 1,000 MCG TAB PO SCH (20:56)
[2023-06-24] MEDS ORDERED: OLANZapine 2.5 MG TAB PO SCH (22:15)
[2023-06-25 04:53] LABS: #Basophils 0.1 thou/uL (0.0-0.2); #Eosinphils 0.3 thou/uL (0.0-0.7); #Neutrophils 4.6 thou/uL (1.40-6.50); %Basophils 0.6 % (0.0-1.0); %Eosinophils 3.6 % (0.0-10.0); %Lymphocytes 25.8 % (21.0-51.0); %Neutrophils 57.9 % (42.0-75.0); Hemoglobin 12.3 g/dL (12.0-16.0); Mean Corpuscular HGB CONC 32.4 g/dL (32.0-36.0); Mean Corpuscular Hemoglobin 27.6 pg (27.0-31.0); Mean Corpuscular Volume 85.2 fl (78.0-98.0); Mean Platelet Volume 10.4 fL (7.4-10.4); Platelet Count 179 10x3/uL (130-400); RBC Distribution Width 13.2 % (11.5-14.5); Red Blood Cell (RBC) Count 4.46 mill/uL (4.20-5.40)
[2023-06-25 05:27] LABS: Anion Gap 14 mmol/L (10-20); BUN (Urea Nitrogen) 17 mg/dL (9.8-20.1); CK (CPK) 1167 U/L (29-168); Calc. Creatinine Clearance 30 mL/min (70-130); Calcium 9.7 mg/dL (7.8-10.44); Carbon Dioxide 24 mmol/L (23-31); Chloride 107 mmol/L (98-107); Estimated GFR 31; Glucose 76 mg/dL (83-110); Potassium 3.8 mmol/L (3.5-5.1); Sodium 141 mmol/L (136-145)
[2023-06-25] MEDS: levETIRAcetam 500 MG/5 ML VIAL SLOW IVP SCH ×2 (08:54→21:36)
[2023-06-25] MEDS: Senokot S 8.6-50 MG TAB PO SCH ×2 (08:54→21:36)
[2023-06-25] MEDS: Anastrozole 1 MG TAB PO SCH (08:54)
[2023-06-25] MEDS: Sodium Chloride 0.9% 1,000 ML IV SCH ×2 (08:57→17:16)
[2023-06-25] MEDS: Folic Acid 1 MG TAB PO SCH (21:36)
[2023-06-25] MEDS: busPIRone HCl 10 MG TAB PO SCH (21:36)
[2023-06-25] MEDS: Multivit, Therapeutic 1 TAB PO SCH (21:36)
[2023-06-25] MEDS: Cyanocobalamin (Vitamin B-12) 1,000 MCG TAB PO SCH (21:36)
[2023-06-26] MEDS: Sodium Chloride 0.9% 1,000 ML IV SCH ×4 (03:28→19:19)
[2023-06-26 06:15] LABS: ALT (SGPT) 26 U/L (8-55); AST (SGOT) 47 U/L (5-34); Albumin 3.5 g/dL (3.4-4.8); Alkaline Phosphatase 100 U/L (40-110); Anion Gap 12 mmol/L (10-20); BUN (Urea Nitrogen) 17 mg/dL (9.8-20.1); Bilirubin, Total 0.6 mg/dL (0.2-1.2); CK (CPK) 656 U/L (29-168); Calc. Creatinine Clearance 33 mL/min (70-130); Calcium 8.9 mg/dL (7.8-10.44); Carbon Dioxide 23 mmol/L (23-31); Chloride 109 mmol/L (98-107); Estimated GFR 35; Globulin 3.2 g/dL (2.4-3.5); Glucose 99 mg/dL (83-110); Protein, Total 6.7 g/dL (5.8-8.1); Sodium 140 mmol/L (136-145)
[2023-06-26] MEDS: Losartan 25 MG TAB PO SCH (09:02)
[2023-06-26] MEDS: Anastrozole 1 MG TAB PO SCH (09:02)
[2023-06-26] MEDS: Senokot S 8.6-50 MG TAB PO SCH ×2 (09:02→21:25)
[2023-06-26] MEDS: busPIRone HCl 10 MG TAB PO SCH ×2 (09:02→21:26)
[2023-06-26] MEDS: levETIRAcetam 500 MG/5 ML VIAL SLOW IVP SCH (09:08)
[2023-06-26] MEDS: Folic Acid 1 MG TAB PO SCH (21:25)
[2023-06-26] MEDS: levETIRAcetam 500 MG TAB PO SCH (21:25)
[2023-06-26] MEDS: Cyanocobalamin (Vitamin B-12) 1,000 MCG TAB PO SCH (21:25)
[2023-06-26] MEDS: Multivit, Therapeutic 1 TAB PO SCH (21:26)
[2023-06-27] MEDS: Sodium Chloride 0.9% 1,000 ML IV SCH ×2 (04:33→13:46)
[2023-06-27 07:19] LABS: Anion Gap 16 mmol/L (10-20); BUN (Urea Nitrogen) 12 mg/dL (9.8-20.1); CK (CPK) 498 U/L (29-168); Calc. Creatinine Clearance 42 mL/min (70-130); Calcium 9.1 mg/dL (7.8-10.44); Carbon Dioxide 21 mmol/L (23-31); Chloride 109 mmol/L (98-107); Estimated GFR 47; Glucose 78 mg/dL (83-110); Potassium 3.7 mmol/L (3.5-5.1); Sodium 142 mmol/L (136-145)
[2023-06-27] MEDS: busPIRone HCl 10 MG TAB PO SCH ×2 (08:20→20:40)
[2023-06-27] MEDS: levETIRAcetam 500 MG TAB PO SCH ×2 (08:21→20:40)
[2023-06-27] MEDS: Anastrozole 1 MG TAB PO SCH (08:22)
[2023-06-27] MEDS: Senokot S 8.6-50 MG TAB PO SCH ×2 (08:24→20:40)
[2023-06-27] MEDS: Losartan 25 MG TAB PO SCH (08:25)
[2023-06-27] MEDS: Multivit, Therapeutic 1 TAB PO SCH (20:40)
[2023-06-27] MEDS: Cyanocobalamin (Vitamin B-12) 1,000 MCG TAB PO SCH (20:40)
[2023-06-27] MEDS: Folic Acid 1 MG TAB PO SCH (20:40)
[2023-06-28 04:38] LABS: #Eosinphils 0.3 thou/uL (0.0-0.7); #Monocytes 0.7 thou/uL (0.11-0.59); #Neutrophils 2.3 thou/uL (1.40-6.50); %Basophils 0.6 % (0.0-1.0); %Eosinophils 5.6 % (0.0-10.0); %Lymphocytes 31.1 % (21.0-51.0); %Monocytes 14.2 % (0.0-10.0); %Neutrophils 48.3 % (42.0-75.0); Hematocrit 36.5 % (36.0-47.0); Hemoglobin 11.9 g/dL (12.0-16.0); Mean Corpuscular HGB CONC 32.6 g/dL (32.0-36.0); Mean Corpuscular Hemoglobin 27.6 pg (27.0-31.0); Mean Corpuscular Volume 84.7 fl (78.0-98.0); Mean Platelet Volume 10.5 fL (7.4-10.4); Platelet Count 173 10x3/uL (130-400); Red Blood Cell (RBC) Count 4.31 mill/uL (4.20-5.40); White Blood Cell (WBC) Count 4.9 10x3/uL (4.8-10.8)
[2023-06-28 05:05] LABS: Anion Gap 12 mmol/L (10-20); BUN (Urea Nitrogen) 11 mg/dL (9.8-20.1); CK (CPK) 446 U/L (29-168); Calc. Creatinine Clearance 39 mL/min (70-130); Calcium 9.5 mg/dL (7.8-10.44); Carbon Dioxide 26 mmol/L (23-31); Chloride 109 mmol/L (98-107); Estimated GFR 43; Glucose 79 mg/dL (83-110); Potassium 4.1 mmol/L (3.5-5.1); Sodium 143 mmol/L (136-145)
[2023-06-28] MEDS: levETIRAcetam 500 MG TAB PO SCH ×2 (08:39→20:26)
[2023-06-28] MEDS: Losartan 25 MG TAB PO SCH (08:39)
[2023-06-28] MEDS: busPIRone HCl 10 MG TAB PO SCH ×2 (08:39→20:25)
[2023-06-28] MEDS: Senokot S 8.6-50 MG TAB PO SCH ×2 (08:40→20:26)
[2023-06-28] MEDS: Anastrozole 1 MG TAB PO SCH (08:40)
[2023-06-28] MEDS ORDERED: Amlodipine 5 MG TAB PO SCH (15:45)
[2023-06-28] MEDS: Folic Acid 1 MG TAB PO SCH (20:25)
[2023-06-28] MEDS: Cyanocobalamin (Vitamin B-12) 1,000 MCG TAB PO SCH (20:26)
[2023-06-28] MEDS: Multivit, Therapeutic 1 TAB PO SCH (20:26)
[2023-06-29] MEDS: levETIRAcetam 500 MG TAB PO SCH ×2 (08:53→21:23)
[2023-06-29] MEDS: Losartan 25 MG TAB PO SCH (08:53)
[2023-06-29] MEDS: Anastrozole 1 MG TAB PO SCH (08:53)
[2023-06-29] MEDS: Senokot S 8.6-50 MG TAB PO SCH ×2 (08:53→21:23)
[2023-06-29] MEDS: busPIRone HCl 10 MG TAB PO SCH ×2 (08:53→21:23)
[2023-06-29] MEDS: Amlodipine 5 MG TAB PO SCH (08:53)
[2023-06-29] MEDS ORDERED: ALPRAZolam 0.25 MG TAB PO SCH (14:00)
[2023-06-29] MEDS: Multivit, Therapeutic 1 TAB PO SCH (21:23)
[2023-06-29] MEDS: Folic Acid 1 MG TAB PO SCH (21:23)
[2023-06-29] MEDS: Cyanocobalamin (Vitamin B-12) 1,000 MCG TAB PO SCH (21:23)
[2023-06-30] MEDS: busPIRone HCl 10 MG TAB PO SCH ×2 (08:46→21:22)
[2023-06-30] MEDS: Anastrozole 1 MG TAB PO SCH (08:46)
[2023-06-30] MEDS: levETIRAcetam 500 MG TAB PO SCH ×2 (08:46→21:22)
[2023-06-30] MEDS: Senokot S 8.6-50 MG TAB PO SCH ×2 (08:46→21:22)
[2023-06-30] MEDS: Amlodipine 5 MG TAB PO SCH (08:46)
[2023-06-30] MEDS: Losartan 25 MG TAB PO SCH (09:54)
[2023-06-30 11:39] VITALS: BMI 31.8
[2023-06-30] MEDS: Multivit, Therapeutic 1 TAB PO SCH (21:22)
[2023-06-30] MEDS: Cyanocobalamin (Vitamin B-12) 1,000 MCG TAB PO SCH (21:22)
[2023-06-30] MEDS: Folic Acid 1 MG TAB PO SCH (21:22)
[2023-07-01] MEDS: busPIRone HCl 10 MG TAB PO SCH ×2 (10:50→22:10)
[2023-07-01] MEDS: levETIRAcetam 500 MG TAB PO SCH ×2 (10:50→22:11)
[2023-07-01] MEDS: Anastrozole 1 MG TAB PO SCH (10:50)
[2023-07-01] MEDS: Senokot S 8.6-50 MG TAB PO SCH ×2 (10:50→22:11)
[2023-07-01] MEDS: Amlodipine 5 MG TAB PO SCH (10:50)
[2023-07-01] MEDS: Losartan 25 MG TAB PO SCH (10:51)
[2023-07-01] MEDS: ALPRAZolam 0.25 MG TAB PO PRN (15:22)
[2023-07-01] MEDS: Multivit, Therapeutic 1 TAB PO SCH (22:10)
[2023-07-01] MEDS: Cyanocobalamin (Vitamin B-12) 1,000 MCG TAB PO SCH (22:10)
[2023-07-01] MEDS: Folic Acid 1 MG TAB PO SCH (22:11)
[2023-07-02] MEDS: busPIRone HCl 10 MG TAB PO SCH ×2 (09:16→21:03)
[2023-07-02] MEDS: Losartan 25 MG TAB PO SCH (09:16)
[2023-07-02] MEDS: Amlodipine 5 MG TAB PO SCH (09:16)
[2023-07-02] MEDS: levETIRAcetam 500 MG TAB PO SCH ×2 (09:17→21:03)
[2023-07-02] MEDS: Anastrozole 1 MG TAB PO SCH (09:17)
[2023-07-02] MEDS: Senokot S 8.6-50 MG TAB PO SCH ×2 (09:17→21:04)
[2023-07-02] MEDS: Folic Acid 1 MG TAB PO SCH (21:03)
[2023-07-02] MEDS: Cyanocobalamin (Vitamin B-12) 1,000 MCG TAB PO SCH (21:03)
[2023-07-02] MEDS: Multivit, Therapeutic 1 TAB PO SCH (21:03)
[2023-07-03 05:00] LABS: #Basophils 0.1 thou/uL (0.0-0.2); #Eosinphils 0.3 thou/uL (0.0-0.7); #Monocytes 0.6 thou/uL (0.11-0.59); #Neutrophils 5.1 thou/uL (1.40-6.50); %Basophils 0.8 % (0.0-1.0); %Eosinophils 3.6 % (0.0-10.0); %Lymphocytes 18.4 % (21.0-51.0); %Monocytes 8.4 % (0.0-10.0); %Neutrophils 68.5 % (42.0-75.0); Hematocrit 40.9 % (36.0-47.0); Hemoglobin 13.2 g/dL (12.0-16.0); Mean Corpuscular HGB CONC 32.3 g/dL (32.0-36.0); Mean Corpuscular Hemoglobin 27.5 pg (27.0-31.0); Mean Corpuscular Volume 85.2 fl (78.0-98.0); Mean Platelet Volume 9.8 fL (7.4-10.4); Platelet Count 190 10x3/uL (130-400); RBC Distribution Width 13.2 % (11.5-14.5); White Blood Cell (WBC) Count 7.5 10x3/uL (4.8-10.8)
[2023-07-03 05:29] LABS: Anion Gap 13 mmol/L (10-20); BUN (Urea Nitrogen) 12 mg/dL (9.8-20.1); Calc. Creatinine Clearance 55 mL/min (70-130); Calcium 9.7 mg/dL (7.8-10.44); Carbon Dioxide 22 mmol/L (23-31); Chloride 105 mmol/L (98-107); Estimated GFR 46; Glucose 91 mg/dL (83-110); Potassium 3.7 mmol/L (3.5-5.1); Sodium 136 mmol/L (136-145)
[2023-07-03] MEDS: Senokot S 8.6-50 MG TAB PO SCH ×2 (09:14→21:15)
[2023-07-03] MEDS: Anastrozole 1 MG TAB PO SCH (09:14)
[2023-07-03] MEDS: Losartan 25 MG TAB PO SCH (09:14)
[2023-07-03] MEDS: levETIRAcetam 500 MG TAB PO SCH ×2 (09:14→21:16)
[2023-07-03] MEDS: Amlodipine 5 MG TAB PO SCH (09:14)
[2023-07-03] MEDS: busPIRone HCl 10 MG TAB PO SCH ×2 (09:14→21:15)
[2023-07-03] MEDS: Multivit, Therapeutic 1 TAB PO SCH (21:16)
[2023-07-03] MEDS: Folic Acid 1 MG TAB PO SCH (21:16)
[2023-07-03] MEDS: Cyanocobalamin (Vitamin B-12) 1,000 MCG TAB PO SCH (21:16)
[2023-07-04 05:00] LABS: #Basophils 0.1 thou/uL (0.0-0.2); #Eosinphils 0.2 thou/uL (0.0-0.7); #Monocytes 0.7 thou/uL (0.11-0.59); #Neutrophils 3.8 thou/uL (1.40-6.50); %Basophils 0.8 % (0.0-1.0); %Eosinophils 3.2 % (0.0-10.0); %Lymphocytes 27.1 % (21.0-51.0); %Monocytes 10.2 % (0.0-10.0); %Neutrophils 58.4 % (42.0-75.0); Hematocrit 39.1 % (36.0-47.0); Hemoglobin 12.9 g/dL (12.0-16.0); Mean Corpuscular Hemoglobin 27.9 pg (27.0-31.0); Mean Corpuscular Volume 84.6 fl (78.0-98.0); Mean Platelet Volume 10.3 fL (7.4-10.4); Platelet Count 209 10x3/uL (130-400); RBC Distribution Width 13.2 % (11.5-14.5); Red Blood Cell (RBC) Count 4.62 mill/uL (4.20-5.40); White Blood Cell (WBC) Count 6.6 10x3/uL (4.8-10.8)
[2023-07-04 05:26] LABS: Anion Gap 13 mmol/L (10-20); BUN (Urea Nitrogen) 14 mg/dL (9.8-20.1); Calc. Creatinine Clearance 50 mL/min (70-130); Calcium 9.5 mg/dL (7.8-10.44); Carbon Dioxide 24 mmol/L (23-31); Chloride 103 mmol/L (98-107); Estimated GFR 42; Glucose 96 mg/dL (83-110); Potassium 3.8 mmol/L (3.5-5.1); Sodium 136 mmol/L (136-145)
[2023-07-04] MEDS: Senokot S 8.6-50 MG TAB PO SCH ×2 (09:19→20:52)
[2023-07-04] MEDS: Anastrozole 1 MG TAB PO SCH (09:19)
[2023-07-04] MEDS: busPIRone HCl 10 MG TAB PO SCH ×2 (09:19→20:53)
[2023-07-04] MEDS: levETIRAcetam 500 MG TAB PO SCH ×2 (09:19→20:52)
[2023-07-04] MEDS: Amlodipine 5 MG TAB PO SCH (09:24)
[2023-07-04] MEDS: Losartan 25 MG TAB PO SCH (09:25)
[2023-07-04] MEDS: ALPRAZolam 0.25 MG TAB PO PRN (12:47)
[2023-07-04] MEDS: Multivit, Therapeutic 1 TAB PO SCH (20:52)
[2023-07-04] MEDS: Cyanocobalamin (Vitamin B-12) 1,000 MCG TAB PO SCH (20:52)
[2023-07-04] MEDS: Folic Acid 1 MG TAB PO SCH (20:53)
[2023-07-05] MEDS: ALPRAZolam 0.25 MG TAB PO PRN (01:29)
[2023-07-05 04:47] LABS: #Basophils 0.1 thou/uL (0.0-0.2); #Eosinphils 0.2 thou/uL (0.0-0.7); #Monocytes 0.8 thou/uL (0.11-0.59); #Neutrophils 4.5 thou/uL (1.40-6.50); %Basophils 0.8 % (0.0-1.0); %Eosinophils 2.2 % (0.0-10.0); %Lymphocytes 28.3 % (21.0-51.0); %Monocytes 10.2 % (0.0-10.0); %Neutrophils 58.4 % (42.0-75.0); Hematocrit 40.5 % (36.0-47.0); Hemoglobin 13.2 g/dL (12.0-16.0); Mean Corpuscular HGB CONC 32.6 g/dL (32.0-36.0); Mean Corpuscular Hemoglobin 27.6 pg (27.0-31.0); Mean Corpuscular Volume 84.6 fl (78.0-98.0); Platelet Count 228 10x3/uL (130-400); RBC Distribution Width 13.2 % (11.5-14.5); Red Blood Cell (RBC) Count 4.79 mill/uL (4.20-5.40); White Blood Cell (WBC) Count 7.7 10x3/uL (4.8-10.8)
[2023-07-05 05:05] LABS: Anion Gap 16 mmol/L (10-20); BUN (Urea Nitrogen) 14 mg/dL (9.8-20.1); Calc. Creatinine Clearance 48 mL/min (70-130); Calcium 9.8 mg/dL (7.8-10.44); Carbon Dioxide 21 mmol/L (23-31); Chloride 103 mmol/L (98-107); Estimated GFR 41; Glucose 113 mg/dL (83-110); Potassium 3.6 mmol/L (3.5-5.1); Sodium 136 mmol/L (136-145)
[2023-07-05] MEDS: Amlodipine 5 MG TAB PO SCH (08:58)
[2023-07-05] MEDS: busPIRone HCl 10 MG TAB PO SCH (08:58)
[2023-07-05] MEDS: Senokot S 8.6-50 MG TAB PO SCH (08:58)
[2023-07-05] MEDS: Losartan 25 MG TAB PO SCH (08:58)
[2023-07-05] MEDS: levETIRAcetam 500 MG TAB PO SCH (08:58)
[2023-07-05] MEDS: Anastrozole 1 MG TAB PO SCH (08:58)
[2023-07-05 12:05] VITALS: BP 145/75; TEMP 97.8
== END 2023-07-05 14:50 | DRG 101 ==
LOC: ERS 07:47 → ERHOLD 15:05 → 2NO 18:21 → OBSVTOIN 06-25 16:58
PROVIDERS: ADMIT Internal Medicine; ATTEND Internal Medicine
PROC: 4A10X4Z Monitoring of Central Nervous Electrical Activity, External Approach (ICD-10-PCS; principal; 2023-06-25)
DX: G40.909 Epilepsy, unspecified, not intractable, without status epilepticus (principal); M62.82 Rhabdomyolysis; N17.9 Acute kidney failure, unspecified; E78.5 Hyperlipidemia, unspecified; N18.30 Chronic kidney disease, stage 3 unspecified; F03.90 Unspecified dementia, unspecified severity, without behavioral disturbance, psychotic disturbance, mood disturbance, and anxiety; I12.9 Hypertensive chronic kidney disease with stage 1 through stage 4 chronic kidney disease, or unspecified chronic kidney disease; E78.00 Pure hypercholesterolemia, unspecified; E86.0 Dehydration; Z79.899 Other long term (current) drug therapy; Z98.890 Other specified postprocedural states; Z90.710 Acquired absence of both cervix and uterus; Z85.3 Personal history of malignant neoplasm of breast
CPT/HCPCS: 36415; 36416; 51701; 70450; 71045; 80048; 80053; 80306; 81001; 82533; 82550; 82607; 83605; 83690; 83735; 84100; 84443; 84484; 85025; 93005; 95816; 95819; 96361; 96374; J1953; J2060; J7050

== ENCOUNTER 2024-02-18 11:04 | Emergency (ER) | payer MEDICARE ==
[2024-02-18] MEDS ORDERED: Acetaminophen 500 MG TAB ONE (11:20)
[2024-02-18] MEDS ORDERED: Sodium Chloride 0.9% 100 ML ONE (11:21)
[2024-02-18] MEDS ORDERED: cefTRIAXone (ROCEPHIN) 2 GM VIAL ONE (11:21)
[2024-02-18 11:56] LABS: Influenza A by NAA Not Detected (NotDetected); Influenza B by NAA Not Detected (NotDetected); SARS-CoV-2 NAA Rapid Test DETECTED (NotDetected)
[2024-02-18 12:23] LABS: #Basophils 0.03 10x3/uL (0.0-0.2); #Eosinphils Less than 0.03 10x3/uL (0.0-0.7); %Basophils 0.2 % (0.0-1.0); %Lymphocytes 6.8 % (21.0-51.0); %Monocytes 6.4 % (0.0-10.0); %Neutrophils 86.3 % (42.0-75.0); Hematocrit 33.2 % (36.0-47.0); Hemoglobin 11.1 g/dL (12.0-16.0); Mean Corpuscular HGB CONC 33.4 g/dL (32.0-36.0); Mean Corpuscular Hemoglobin 28.6 pg (27.0-31.0); Mean Corpuscular Volume 85.6 fL (78.0-98.0); Mean Platelet Volume 9.3 fL (7.4-10.4); Platelet Count 153 10x3/uL (130-400); RBC Distribution Width 12.6 % (11.5-14.5); Red Blood Cell (RBC) Count 3.88 mill/uL (4.20-5.40)
[2024-02-18 12:37] LABS: INR-International Normal Ratio 1.1; Prothrombin Time 14.2 sec (12.0-14.7)
[2024-02-18 12:38] LABS: PTT 29.5 sec (22.9-36.1)
[2024-02-18 12:48] LABS: ALT (SGPT) 16 U/L (8-55); AST (SGOT) 34 U/L (5-34); Albumin 3.4 g/dL (3.4-4.8); Alkaline Phosphatase 99 U/L (40-110); Anion Gap 11 mmol/L (10-20); BUN (Urea Nitrogen) 19 mg/dL (9.8-20.1); Bilirubin, Total 0.6 mg/dL (0.2-1.2); Calc. Creatinine Clearance 0 mL/min (70-130); Calcium 9.1 mg/dL (7.8-10.44); Carbon Dioxide 22 mmol/L (23-31); Chloride 101 mmol/L (98-107); Estimated GFR 36; Globulin 3.6 g/dL (2.4-3.5); Glucose 143 mg/dL (83-110); Magnesium 1.5 mg/dL (1.6-2.6); Potassium 3.8 mmol/L (3.5-5.1); Sodium 130 mmol/L (136-145)
[2024-02-18 12:53] LABS: Troponin I 0.016 ng/mL (< 0.028)
[2024-02-18] MEDS ORDERED: Magnesium 2 GM/50 ML BAG (IN WATER) ONE (14:01)
== END 2024-02-18 14:45 | disposition home or self-care (01) ==
LOC: ERS 11:04
DX: U07.1 COVID-19 (principal); E83.42 Hypomagnesemia; I10 Essential (primary) hypertension; E78.00 Pure hypercholesterolemia, unspecified; F03.90 Unspecified dementia, unspecified severity, without behavioral disturbance, psychotic disturbance, mood disturbance, and anxiety; Z79.899 Other long term (current) drug therapy
CPT/HCPCS: 0240U; 70450; 71045; 80053; 83605; 83735; 83880; 84484; 85025; 85610; 85730; 87040; 93005; J0696; J3475; J3490; 36415; 96365; 96367

== ENCOUNTER 2024-12-30 11:00 | Emergency (ER) | payer MEDICARE ==
[2024-12-30 11:49] LABS: #Basophils 0.05 10x3/uL (0.0-0.2); #Eosinophils 0.81 10x3/uL (0.0-0.7); #Neutrophils 4.44 10x3/uL (1.40-6.50); %Basophils 0.7 % (0.0-1.0); %Eosinophils 10.6 % (0.0-10.0); %Lymphocytes 21.6 % (21.0-51.0); %Monocytes 9.1 % (0.0-10.0); %Neutrophils 57.9 % (42.0-75.0); Hemoglobin 11.9 g/dL (12.0-16.0); Mean Corpuscular HGB CONC 32.2 g/dL (32.0-36.0); Mean Corpuscular Hemoglobin 27.5 pg (27.0-31.0); Mean Corpuscular Volume 85.6 fL (78.0-98.0); Platelet Count 248 10x3/uL (130-400); RBC Distribution Width 12.7 % (11.5-14.5); Red Blood Cell (RBC) Count 4.32 mill/uL (4.20-5.40); White Blood Cell (WBC) Count 7.67 10x3/uL (4.8-10.8)
[2024-12-30 12:04] LABS: ALT (SGPT) 11 U/L (Less than 34); AST (SGOT) 34 U/L (11-34); Albumin 3.6 g/dL (3.1-4.5); Alkaline Phosphatase 166 U/L (40-110); Anion Gap 15 mmol/L (10-20); BUN (Urea Nitrogen) 15 mg/dL (9.8-20.1); Bilirubin, Total 0.3 mg/dL (0.3-1.2); Calc. Creatinine Clearance 0 mL/min (70-130); Calcium 9.3 mg/dL (7.8-10.44); Carbon Dioxide 22 mmol/L (23-31); Chloride 108 mmol/L (98-107); Estimated GFR 40; Globulin 4.2 g/dL (2.4-3.5); Glucose 116 mg/dL (83-110); Magnesium 1.7 mg/dL (1.6-2.6); Potassium 4.4 mmol/L (3.5-5.1); Protein, Total 7.8 g/dL (5.8-8.1); Sodium 141 mmol/L (136-145)
[2024-12-30 12:20] LABS: Bacteria/HPF None Seen HPF (None Seen); Bilirubin Negative (Negative); Blood, Urine Negative (Negative); CAUTI Indications for Culture Alt mental st,lethar; Clarity Clear (Clear); Glucose, Urine (Dipstick) Normal (Negative); Ketone, Urine Negative (Negative); Leukocyte Negative Leu/uL (Negative); Nitrite Negative (Negative); Protein, Urine (Dipstick) 30 mg/dL (Neg-Trace); RBC/HPF None Seen HPF (0-3); Specific Gravity, Urine 1.028 (1.002-1.036); Squamous Epithelial None Seen HPF (0-3); WBC/HPF 0-3 HPF (0-3); pH, Urine 6.5 (5.0-9.0)
[2024-12-30 12:21] LABS: Urine Culture Reflex No No
== END 2024-12-30 15:13 | disposition home or self-care (01) ==
LOC: ERS 11:00
DX: M17.12 Unilateral primary osteoarthritis, left knee (principal); I12.9 Hypertensive chronic kidney disease with stage 1 through stage 4 chronic kidney disease, or unspecified chronic kidney disease; N18.9 Chronic kidney disease, unspecified; F03.90 Unspecified dementia, unspecified severity, without behavioral disturbance, psychotic disturbance, mood disturbance, and anxiety; E78.00 Pure hypercholesterolemia, unspecified; Z79.899 Other long term (current) drug therapy; Z90.11 Acquired absence of right breast and nipple
CPT/HCPCS: 36415; 51701; 80053; 81001; 83735; 85025; 96360

== ENCOUNTER 2025-03-25 12:45 | Inpatient (IN) | payer MEDICARE ==
[2025-03-25] MEDS ORDERED: Cefepime 2 GM VIAL ONE (13:10)
[2025-03-25 13:18] LABS: Bacteria/HPF None Seen HPF (None Seen); CAUTI Indications for Culture Alt mental st,lethar; Glucose, Urine (Dipstick) Greater than 1000 mg/dL (Negative); Leukocyte Negative Leu/uL (Negative); Protein, Urine (Dipstick) 70 mg/dL (Neg-Trace); RBC/HPF 0-3 HPF (0-3); Specific Gravity, Urine 1.029 (1.002-1.036); WBC/HPF 0-3 HPF (0-3)
[2025-03-25 13:19] LABS: Urine Culture Reflex No No
[2025-03-25 13:23] LABS: #Basophils Less than 0.03 10x3/uL (0.0-0.2); #Eosinophils Less than 0.03 10x3/uL (0.0-0.7); #Monocytes 0.88 10x3/uL (0.11-0.59); #Neutrophils 7.45 10x3/uL (1.40-6.50); %Basophils 0.2 % (0.0-1.0); %Eosinophils 0.1 % (0.0-10.0); %Lymphocytes 11.6 % (21.0-51.0); %Monocytes 9.3 % (0.0-10.0); %Neutrophils 78.4 % (42.0-75.0); Hematocrit 29.2 % (36.0-47.0); Hemoglobin 9.2 g/dL (12.0-16.0); Mean Corpuscular Hemoglobin 25.9 pg (27.0-31.0); Mean Corpuscular Volume 82.3 fL (78.0-98.0); Platelet Count 291 10x3/uL (130-400); Red Blood Cell (RBC) Count 3.55 mill/uL (4.20-5.40); White Blood Cell (WBC) Count 9.50 10x3/uL (4.8-10.8)
[2025-03-25 13:40] LABS: Actual Bicarbonate (HCO3v) 21.3 mEq/L (22-28); Base Excess -2.3 mEq/L (-2.0 to +3.0); Calcium, Ionized (venous) 1.12 mmol/L (1.16-1.32); Chloride (VBG) 103 mmol/L (98-106); Hematocrit-VBG 32 % (36.0-47.0); Hemoglobin (Hb) 10.8 g/dL (11.7-16.1); Potassium (VBG) 4.53 mmol/L (3.70-5.30); Sodium 138 mmol/L (133-146)
[2025-03-25 13:55] LABS: ALT (SGPT) 11 U/L (Less than 34); AST (SGOT) 28 U/L (11-34); Albumin 2.8 g/dL (3.1-4.5); Alkaline Phosphatase 320 U/L (40-110); Anion Gap 14 mmol/L (10-20); BUN (Urea Nitrogen) 41 mg/dL (9.8-20.1); Bilirubin, Total 0.3 mg/dL (0.3-1.2); Calc. Creatinine Clearance 0 mL/min (70-130); Calcium 9.3 mg/dL (7.8-10.44); Carbon Dioxide 25 mmol/L (23-31); Chloride 104 mmol/L (98-107); Globulin 5.8 g/dL (2.4-3.5); Glucose 730 mg/dL (83-110); Lipase 37 U/L (8-78); Magnesium 1.9 mg/dL (1.6-2.6); Potassium 4.4 mmol/L (3.5-5.1); Sodium 139 mmol/L (136-145)
[2025-03-25] MEDS ORDERED: INSULIN REGULAR IN 0.9 % NACL 100 ML ONE (14:41)
[2025-03-25 14:58] LABS: Osmolality, Serum 341 mOsm/kg (280-301)
[2025-03-25] MEDS ORDERED: VANCOMYCIN 2 GRAM/400 ML BAG ONE (15:09)
[2025-03-25] MEDS ORDERED: NS 0.9% w/ 20 MEQ KCL 1,000 ML ONE (15:11)
[2025-03-25] MEDS ORDERED: Ondansetron PF 4 MG/2 ML Vial IVP PRN (15:19)
[2025-03-25] MEDS ORDERED: D5 1/2 NS w/20 mEq KCL 1,000 ML IV PRN (15:19)
[2025-03-25] MEDS ORDERED: Dextrose 50% Abboject 50 ML SYRINGE SLOW IVP PRN (15:19)
[2025-03-25] MEDS ORDERED: NS 0.9% w/ 20 MEQ KCL 1,000 ML IV PRN (15:19)
[2025-03-25] MEDS ORDERED: INSULIN REGULAR IN 0.9 % NACL 100 ML IVPB SCH (15:30)
[2025-03-25] MEDS: VANCOMYCIN 2 GRAM/400 ML Premix BAG IVPB SCH (15:59)
[2025-03-25 16:21] LABS: Anion Gap 21 mmol/L (10-20); BUN (Urea Nitrogen) 35 mg/dL (9.8-20.1); Calc. Creatinine Clearance 0 mL/min (70-130); Calcium 9.5 mg/dL (7.8-10.44); Carbon Dioxide 19 mmol/L (23-31); Chloride 107 mmol/L (98-107); Glucose 562 mg/dL (83-110); Potassium 4.7 mmol/L (3.5-5.1); Sodium 142 mmol/L (136-145)
[2025-03-25 17:21] LABS: Influenza A by NAA Not Detected (NotDetected); Influenza B by NAA Not Detected (NotDetected); RSV by NAA Not Detected (NotDetected); SARS-CoV-2 NAA Rapid Test Not Detected (NotDetected)
[2025-03-25] MEDS: NS 0.9% w/ 20 MEQ KCL 1,000 ML IV PRN (18:38)
[2025-03-25 20:48] LABS: Anion Gap 16 mmol/L (10-20); BUN (Urea Nitrogen) 33 mg/dL (9.8-20.1); Calc. Creatinine Clearance 65 mL/min (70-130); Calcium 9.0 mg/dL (7.8-10.44); Carbon Dioxide 18 mmol/L (23-31); Chloride 116 mmol/L (98-107); Glucose 115 mg/dL (83-110); Potassium 4.8 mmol/L (3.5-5.1); Sodium 145 mmol/L (136-145)
[2025-03-25] MEDS: Famotidine/PF 20 mg/2ml Vial SLOW IVP SCH (21:21)
[2025-03-25] MEDS: Magnesium 2 GM/50 ML(in water) 2 GM in Premix 1 BAG IVPB SCH (21:49)
[2025-03-25] MEDS ORDERED: Vancomycin 1 GM in Sodium Chloride 0.9% 250 ML 300 ML IVPB SCH (22:00)
[2025-03-25 23:50] LABS: Anion Gap 18 mmol/L (10-20); BUN (Urea Nitrogen) 33 mg/dL (9.8-20.1); Calc. Creatinine Clearance 60 mL/min (70-130); Calcium 9.2 mg/dL (7.8-10.44); Carbon Dioxide 18 mmol/L (23-31); Chloride 114 mmol/L (98-107); Glucose 192 mg/dL (83-110); Potassium 4.4 mmol/L (3.5-5.1); Sodium 146 mmol/L (136-145)
[2025-03-26] MEDS: Vancomycin 1 GM in Premix 1 BAG IVPB SCH (01:59)
[2025-03-26] MEDS ORDERED: Glucagon 1 MG/ML KIT IM PRN (02:19)
[2025-03-26] MEDS ORDERED: Dextrose 50% Abboject 50 ML SYRINGE SLOW IVP PRN (02:19)
[2025-03-26 03:45] VITALS: BMI 25.9
[2025-03-26 07:18] LABS: #Basophils 0.06 10x3/uL (0.0-0.2); #Eosinophils 0.09 10x3/uL (0.0-0.7); #Monocytes 1.03 10x3/uL (0.11-0.59); #Neutrophils 7.96 10x3/uL (1.40-6.50); %Basophils 0.5 % (0.0-1.0); %Eosinophils 0.8 % (0.0-10.0); %Lymphocytes 17.0 % (21.0-51.0); %Monocytes 9.3 % (0.0-10.0); %Neutrophils 72.1 % (42.0-75.0); Hematocrit 26.5 % (36.0-47.0); Hemoglobin 8.1 g/dL (12.0-16.0); Mean Corpuscular Hemoglobin 26.1 pg (27.0-31.0); Mean Corpuscular Volume 85.5 fL (78.0-98.0); Platelet Count 245 10x3/uL (130-400); Red Blood Cell (RBC) Count 3.10 mill/uL (4.20-5.40); White Blood Cell (WBC) Count 11.05 10x3/uL (4.8-10.8)
[2025-03-26 07:30] LABS: INR-International Normal Ratio 1.2; PTT 28.5 sec (22.9-36.1); Prothrombin Time 15.7 sec (12.0-14.7)
[2025-03-26 07:34] LABS: Vancomycin, Random 33.0 ug/mL (See Comment)
[2025-03-26 07:36] LABS: Anion Gap 12 mmol/L (10-20); BUN (Urea Nitrogen) 28 mg/dL (9.8-20.1); Calc. Creatinine Clearance 65 mL/min (70-130); Calcium 8.8 mg/dL (7.8-10.44); Carbon Dioxide 21 mmol/L (23-31); Chloride 115 mmol/L (98-107); Glucose 216 mg/dL (83-110); Magnesium 1.8 mg/dL (1.6-2.6); Potassium 3.9 mmol/L (3.5-5.1); Sodium 144 mmol/L (136-145)
[2025-03-26] MEDS: Magnesium 2 GM/50 ML(in water) 2 GM in Premix 1 BAG IVPB SCH (08:20)
[2025-03-26] MEDS: levETIRAcetam 500 mg/5 ml Oral Solution PER TUBE SCH (08:21)
[2025-03-26] MEDS ORDERED: Enoxaparin 40 MG (0.4 mL) SYRINGE SC SCH (09:00)
[2025-03-26] MEDS: Vancomycin 1.25 GM / NS 250 ML VIAL-2-BAG IVPB SCH (20:08)
[2025-03-27 06:05] LABS: #Basophils 0.04 10x3/uL (0.0-0.2); #Eosinophils 0.29 10x3/uL (0.0-0.7); #Monocytes 0.80 10x3/uL (0.11-0.59); #Neutrophils 3.34 10x3/uL (1.40-6.50); %Basophils 0.7 % (0.0-1.0); %Eosinophils 4.8 % (0.0-10.0); %Lymphocytes 25.4 % (21.0-51.0); %Monocytes 13.3 % (0.0-10.0); %Neutrophils 55.5 % (42.0-75.0); Hematocrit 27.3 % (36.0-47.0); Hemoglobin 8.1 g/dL (12.0-16.0); Mean Corpuscular Hemoglobin 25.8 pg (27.0-31.0); Mean Corpuscular Volume 86.9 fL (78.0-98.0); Platelet Count 198 10x3/uL (130-400); Red Blood Cell (RBC) Count 3.14 mill/uL (4.20-5.40); White Blood Cell (WBC) Count 6.02 10x3/uL (4.8-10.8)
[2025-03-27 06:33] LABS: Vancomycin, Trough 25.7 ug/mL
[2025-03-27 06:35] LABS: Anion Gap 11 mmol/L (10-20); BUN (Urea Nitrogen) 21 mg/dL (9.8-20.1); Calc. Creatinine Clearance 69 mL/min (70-130); Carbon Dioxide 18 mmol/L (23-31); Chloride 113 mmol/L (98-107); Potassium 3.7 mmol/L (3.5-5.1); Sodium 138 mmol/L (136-145)
[2025-03-27 06:36] LABS: Calcium 8.8 mg/dL (7.8-10.44); Glucose 126 mg/dL (83-110); Magnesium 1.7 mg/dL (1.6-2.6)
[2025-03-27] MEDS: Losartan 25 MG TAB PER TUBE SCH (09:44)
[2025-03-27] MEDS: Aspirin Chewable 81 MG TAB PER TUBE SCH (09:45)
[2025-03-27] MEDS: Pantoprazole 40 MG DR.TAB PO SCH (09:45)
[2025-03-27] MEDS: Multivit, Therapeutic 1 TAB PER TUBE SCH (09:45)
[2025-03-27] MEDS: Magnesium 2 GM/50 ML(in water) 2 GM in Premix 1 BAG IVPB SCH (09:47)
[2025-03-28 05:39] LABS: #Basophils 0.04 10x3/uL (0.0-0.2); #Eosinophils 0.28 10x3/uL (0.0-0.7); #Monocytes 0.66 10x3/uL (0.11-0.59); #Neutrophils 2.24 10x3/uL (1.40-6.50); %Basophils 0.9 % (0.0-1.0); %Eosinophils 6.3 % (0.0-10.0); %Lymphocytes 27.9 % (21.0-51.0); %Monocytes 14.7 % (0.0-10.0); %Neutrophils 50.0 % (42.0-75.0); Hematocrit 29.2 % (36.0-47.0); Hemoglobin 8.7 g/dL (12.0-16.0); Mean Corpuscular Hemoglobin 25.7 pg (27.0-31.0); Mean Corpuscular Volume 86.1 fL (78.0-98.0); Platelet Count 195 10x3/uL (130-400); Red Blood Cell (RBC) Count 3.39 mill/uL (4.20-5.40); White Blood Cell (WBC) Count 4.48 10x3/uL (4.8-10.8)
[2025-03-28 05:53] LABS: Anion Gap 13 mmol/L (10-20); BUN (Urea Nitrogen) 16 mg/dL (9.8-20.1); Calc. Creatinine Clearance 72 mL/min (70-130); Calcium 8.5 mg/dL (7.8-10.44); Carbon Dioxide 20 mmol/L (23-31); Chloride 109 mmol/L (98-107); Glucose 88 mg/dL (83-110); Magnesium 1.7 mg/dL (1.6-2.6); Potassium 3.5 mmol/L (3.5-5.1); Sodium 138 mmol/L (136-145)
[2025-03-28] MEDS: Magnesium 2 GM/50 ML(in water) 2 GM in Premix 1 BAG IVPB SCH (08:17)
[2025-03-28] MEDS: Potassium Bicarbonate/Cit Ac 20 MEQ TAB PER TUBE SCH (08:18)
[2025-03-28] MEDS: Lansoprazole 30 MG/10 ML UDCUP PER TUBE SCH (09:04)
[2025-03-28 14:57] VITALS: BMI 26.2
[2025-03-29 05:27] LABS: #Basophils 0.03 10x3/uL (0.0-0.2); #Eosinophils 0.25 10x3/uL (0.0-0.7); #Monocytes 0.48 10x3/uL (0.11-0.59); #Neutrophils 1.93 10x3/uL (1.40-6.50); %Basophils 0.8 % (0.0-1.0); %Eosinophils 6.9 % (0.0-10.0); %Lymphocytes 25.6 % (21.0-51.0); %Monocytes 13.2 % (0.0-10.0); %Neutrophils 53.2 % (42.0-75.0); Hematocrit 28.0 % (36.0-47.0); Hemoglobin 8.4 g/dL (12.0-16.0); Mean Corpuscular Hemoglobin 25.4 pg (27.0-31.0); Mean Corpuscular Volume 84.6 fL (78.0-98.0); Platelet Count 192 10x3/uL (130-400); Red Blood Cell (RBC) Count 3.31 mill/uL (4.20-5.40); White Blood Cell (WBC) Count 3.63 10x3/uL (4.8-10.8)
[2025-03-29 05:50] LABS: Anion Gap 11 mmol/L (10-20); BUN (Urea Nitrogen) 14 mg/dL (9.8-20.1); Calc. Creatinine Clearance 68 mL/min (70-130); Calcium 8.3 mg/dL (7.8-10.44); Carbon Dioxide 20 mmol/L (23-31); Chloride 112 mmol/L (98-107); Glucose 114 mg/dL (83-110); Potassium 3.7 mmol/L (3.5-5.1); Sodium 139 mmol/L (136-145)
[2025-03-29 06:01] LABS: Vancomycin, Random 35.6 ug/mL (See Comment)
[2025-03-29] MEDS ORDERED: Vancomycin 1 GM in Premix 1 BAG IVPB SCH (21:00)
[2025-03-30 04:35] LABS: #Basophils Less than 0.03 10x3/uL (0.0-0.2); #Eosinophils 0.24 10x3/uL (0.0-0.7); #Monocytes 0.54 10x3/uL (0.11-0.59); #Neutrophils 1.82 10x3/uL (1.40-6.50); %Basophils 0.6 % (0.0-1.0); %Eosinophils 6.7 % (0.0-10.0); %Lymphocytes 26.9 % (21.0-51.0); %Monocytes 15.0 % (0.0-10.0); %Neutrophils 50.5 % (42.0-75.0); Hematocrit 26.8 % (36.0-47.0); Hemoglobin 8.3 g/dL (12.0-16.0); Mean Corpuscular Hemoglobin 25.5 pg (27.0-31.0); Mean Corpuscular Volume 82.5 fL (78.0-98.0); Platelet Count 166 10x3/uL (130-400); Red Blood Cell (RBC) Count 3.25 mill/uL (4.20-5.40); White Blood Cell (WBC) Count 3.60 10x3/uL (4.8-10.8)
[2025-03-30 04:58] LABS: Anion Gap 11 mmol/L (10-20); BUN (Urea Nitrogen) 14 mg/dL (9.8-20.1); Calc. Creatinine Clearance 68 mL/min (70-130); Calcium 8.1 mg/dL (7.8-10.44); Carbon Dioxide 23 mmol/L (23-31); Chloride 111 mmol/L (98-107); Glucose 169 mg/dL (83-110); Potassium 3.7 mmol/L (3.5-5.1); Sodium 141 mmol/L (136-145)
[2025-03-31 04:47] LABS: #Basophils Less than 0.03 10x3/uL (0.0-0.2); #Eosinophils 0.26 10x3/uL (0.0-0.7); #Monocytes 0.51 10x3/uL (0.11-0.59); #Neutrophils 2.89 10x3/uL (1.40-6.50); %Basophils 0.4 % (0.0-1.0); %Eosinophils 5.3 % (0.0-10.0); %Lymphocytes 25.2 % (21.0-51.0); %Monocytes 10.3 % (0.0-10.0); %Neutrophils 58.6 % (42.0-75.0); Hematocrit 25.1 % (36.0-47.0); Hemoglobin 7.8 g/dL (12.0-16.0); Mean Corpuscular Hemoglobin 25.7 pg (27.0-31.0); Mean Corpuscular Volume 82.6 fL (78.0-98.0); Platelet Count 177 10x3/uL (130-400); Red Blood Cell (RBC) Count 3.04 mill/uL (4.20-5.40); White Blood Cell (WBC) Count 4.93 10x3/uL (4.8-10.8)
[2025-03-31 05:07] LABS: Anion Gap 11 mmol/L (10-20); BUN (Urea Nitrogen) 17 mg/dL (9.8-20.1); Calc. Creatinine Clearance 66 mL/min (70-130); Calcium 8.1 mg/dL (7.8-10.44); Carbon Dioxide 24 mmol/L (23-31); Chloride 108 mmol/L (98-107); Glucose 181 mg/dL (83-110); Potassium 3.8 mmol/L (3.5-5.1); Sodium 139 mmol/L (136-145)
[2025-04-01 06:13] LABS: #Basophils 0.03 10x3/uL (0.0-0.2); #Eosinophils 0.26 10x3/uL (0.0-0.7); #Monocytes 0.63 10x3/uL (0.11-0.59); #Neutrophils 3.42 10x3/uL (1.40-6.50); %Basophils 0.5 % (0.0-1.0); %Eosinophils 4.6 % (0.0-10.0); %Lymphocytes 22.1 % (21.0-51.0); %Monocytes 11.3 % (0.0-10.0); %Neutrophils 61.1 % (42.0-75.0); Hematocrit 25.4 % (36.0-47.0); Hemoglobin 7.7 g/dL (12.0-16.0); Mean Corpuscular Hemoglobin 25.7 pg (27.0-31.0); Mean Corpuscular Volume 84.7 fL (78.0-98.0); Platelet Count 168 10x3/uL (130-400); Red Blood Cell (RBC) Count 3.00 mill/uL (4.20-5.40); White Blood Cell (WBC) Count 5.60 10x3/uL (4.8-10.8)
[2025-04-01 06:43] LABS: Anion Gap 9 mmol/L (10-20); BUN (Urea Nitrogen) 21 mg/dL (9.8-20.1); Calc. Creatinine Clearance 60 mL/min (70-130); Calcium 8.1 mg/dL (7.8-10.44); Carbon Dioxide 26 mmol/L (23-31); Chloride 109 mmol/L (98-107); Glucose 193 mg/dL (83-110); Potassium 3.9 mmol/L (3.5-5.1); Sodium 140 mmol/L (136-145)
[2025-04-01] MEDS: Acetaminophen 325 MG TAB PER TUBE PRN (20:58)
[2025-04-02 06:07] LABS: Anion Gap 12 mmol/L (10-20); BUN (Urea Nitrogen) 24 mg/dL (9.8-20.1); Calc. Creatinine Clearance 60 mL/min (70-130); Calcium 8.6 mg/dL (7.8-10.44); Carbon Dioxide 26 mmol/L (23-31); Chloride 106 mmol/L (98-107); Glucose 154 mg/dL (83-110); Potassium 4.1 mmol/L (3.5-5.1); Sodium 140 mmol/L (136-145)
[2025-04-03 06:02] LABS: Anion Gap 15 mmol/L (10-20); BUN (Urea Nitrogen) 22 mg/dL (9.8-20.1); Calc. Creatinine Clearance 56 mL/min (70-130); Calcium 8.5 mg/dL (7.8-10.44); Carbon Dioxide 24 mmol/L (23-31); Chloride 107 mmol/L (98-107); Glucose 198 mg/dL (83-110); Potassium 4.0 mmol/L (3.5-5.1); Sodium 142 mmol/L (136-145)
[2025-04-04 10:29] LABS: Anion Gap 11 mmol/L (10-20); BUN (Urea Nitrogen) 22 mg/dL (9.8-20.1); Calc. Creatinine Clearance 59 mL/min (70-130); Calcium 8.7 mg/dL (7.8-10.44); Carbon Dioxide 26 mmol/L (23-31); Glucose 182 mg/dL (83-110); Potassium 4.1 mmol/L (3.5-5.1); Sodium 138 mmol/L (136-145)
[2025-04-04 10:32] LABS: Chloride 105 mmol/L (98-107)
[2025-04-05 05:10] LABS: #Basophils 0.03 10x3/uL (0.0-0.2); #Eosinophils 0.23 10x3/uL (0.0-0.7); #Monocytes 0.99 10x3/uL (0.11-0.59); #Neutrophils 4.14 10x3/uL (1.40-6.50); %Basophils 0.4 % (0.0-1.0); %Eosinophils 3.1 % (0.0-10.0); %Lymphocytes 26.4 % (21.0-51.0); %Monocytes 13.5 % (0.0-10.0); %Neutrophils 56.3 % (42.0-75.0); Hematocrit 29.3 % (36.0-47.0); Hemoglobin 8.7 g/dL (12.0-16.0); Mean Corpuscular Hemoglobin 25.9 pg (27.0-31.0); Mean Corpuscular Volume 87.2 fL (78.0-98.0); Platelet Count 233 10x3/uL (130-400); Red Blood Cell (RBC) Count 3.36 mill/uL (4.20-5.40); White Blood Cell (WBC) Count 7.35 10x3/uL (4.8-10.8)
[2025-04-05 05:29] LABS: Anion Gap 10 mmol/L (10-20); BUN (Urea Nitrogen) 24 mg/dL (9.8-20.1); Calc. Creatinine Clearance 56 mL/min (70-130); Calcium 8.9 mg/dL (7.8-10.44); Carbon Dioxide 24 mmol/L (23-31); Chloride 106 mmol/L (98-107); Glucose 200 mg/dL (83-110); Potassium 4.3 mmol/L (3.5-5.1); Sodium 136 mmol/L (136-145)
[2025-04-09 05:40] LABS: #Basophils 0.04 10x3/uL (0.0-0.2); #Eosinophils 0.24 10x3/uL (0.0-0.7); #Monocytes 0.99 10x3/uL (0.11-0.59); #Neutrophils 3.66 10x3/uL (1.40-6.50); %Basophils 0.6 % (0.0-1.0); %Eosinophils 3.5 % (0.0-10.0); %Lymphocytes 27.1 % (21.0-51.0); %Monocytes 14.6 % (0.0-10.0); %Neutrophils 53.9 % (42.0-75.0); Hematocrit 33.2 % (36.0-47.0); Hemoglobin 10.3 g/dL (12.0-16.0); Mean Corpuscular Hemoglobin 26.0 pg (27.0-31.0); Mean Corpuscular Volume 83.8 fL (78.0-98.0); Platelet Count 285 10x3/uL (130-400); Red Blood Cell (RBC) Count 3.96 mill/uL (4.20-5.40); White Blood Cell (WBC) Count 6.79 10x3/uL (4.8-10.8)
[2025-04-09 05:50] LABS: Anion Gap 13 mmol/L (10-20); BUN (Urea Nitrogen) 40 mg/dL (9.8-20.1); Calc. Creatinine Clearance 56 mL/min (70-130); Calcium 9.3 mg/dL (7.8-10.44); Carbon Dioxide 27 mmol/L (23-31); Chloride 101 mmol/L (98-107); Glucose 191 mg/dL (83-110); Potassium 4.9 mmol/L (3.5-5.1); Sodium 136 mmol/L (136-145)
[2025-04-09] MEDS ORDERED: Insulin Glargine 30 UNITS/0.3 ML VIAL SC SCH (21:00)
[2025-04-09] MEDS: Insulin Glargine 30 UNITS/0.3 ML VIAL SC SCH (23:20)
[2025-04-14 04:39] LABS: #Basophils 0.03 10x3/uL (0.0-0.2); #Eosinophils 0.21 10x3/uL (0.0-0.7); #Monocytes 0.80 10x3/uL (0.11-0.59); #Neutrophils 3.12 10x3/uL (1.40-6.50); %Basophils 0.5 % (0.0-1.0); %Eosinophils 3.6 % (0.0-10.0); %Lymphocytes 27.9 % (21.0-51.0); %Monocytes 13.8 % (0.0-10.0); %Neutrophils 54.0 % (42.0-75.0); Hematocrit 29.4 % (36.0-47.0); Hemoglobin 9.2 g/dL (12.0-16.0); Mean Corpuscular Hemoglobin 26.7 pg (27.0-31.0); Mean Corpuscular Volume 85.5 fL (78.0-98.0); Platelet Count 252 10x3/uL (130-400); Red Blood Cell (RBC) Count 3.44 mill/uL (4.20-5.40); White Blood Cell (WBC) Count 5.78 10x3/uL (4.8-10.8)
[2025-04-14 05:17] LABS: Anion Gap 11 mmol/L (10-20); BUN (Urea Nitrogen) 65 mg/dL (9.8-20.1); Calc. Creatinine Clearance 45 mL/min (70-130); Calcium 9.4 mg/dL (7.8-10.44); Carbon Dioxide 28 mmol/L (23-31); Chloride 101 mmol/L (98-107); Glucose 150 mg/dL (83-110); Magnesium 1.9 mg/dL (1.6-2.6); Potassium 4.3 mmol/L (3.5-5.1); Sodium 136 mmol/L (136-145)
[2025-04-14] MEDS: Magnesium 2 GM/50 ML(in water) 2 GM in Premix 1 BAG IVPB SCH (09:28)
[2025-04-14] MEDS: Famotidine/PF 20 mg/2ml Vial SLOW IVP SCH (22:51)
[2025-04-15 06:49] LABS: Anion Gap 15 mmol/L (10-20); BUN (Urea Nitrogen) 57 mg/dL (9.8-20.1); Calc. Creatinine Clearance 50 mL/min (70-130); Calcium 9.4 mg/dL (7.8-10.44); Carbon Dioxide 26 mmol/L (23-31); Chloride 99 mmol/L (98-107); Glucose 151 mg/dL (83-110); Potassium 4.5 mmol/L (3.5-5.1); Sodium 135 mmol/L (136-145)
[2025-04-16 04:56] LABS: Anion Gap 15 mmol/L (10-20); BUN (Urea Nitrogen) 57 mg/dL (9.8-20.1); Calc. Creatinine Clearance 52 mL/min (70-130); Calcium 9.6 mg/dL (7.8-10.44); Carbon Dioxide 26 mmol/L (23-31); Chloride 99 mmol/L (98-107); Glucose 117 mg/dL (83-110); Potassium 4.6 mmol/L (3.5-5.1); Sodium 135 mmol/L (136-145)
[2025-04-17 17:30] LABS: CAUTI Indications for Culture Alt mental st,lethar; Glucose, Urine (Dipstick) Normal (Negative); Leukocyte 75 Leu/uL (Negative); Protein, Urine (Dipstick) Negative (Neg-Trace); RBC/HPF 0-3 HPF (0-3); Specific Gravity, Urine 1.018 (1.002-1.036)
[2025-04-17 17:31] LABS: Bacteria/HPF 1+ HPF (None Seen)
[2025-04-17 17:32] LABS: Urine Culture Reflex Yes Yes
[2025-04-18 05:51] LABS: #Basophils Less than 0.03 10x3/uL (0.0-0.2); #Eosinophils 0.16 10x3/uL (0.0-0.7); #Monocytes 0.79 10x3/uL (0.11-0.59); #Neutrophils 3.75 10x3/uL (1.40-6.50); %Basophils 0.3 % (0.0-1.0); %Eosinophils 2.7 % (0.0-10.0); %Lymphocytes 21.0 % (21.0-51.0); %Monocytes 13.2 % (0.0-10.0); %Neutrophils 62.6 % (42.0-75.0); Hematocrit 30.1 % (36.0-47.0); Hemoglobin 9.4 g/dL (12.0-16.0); Mean Corpuscular Hemoglobin 25.8 pg (27.0-31.0); Mean Corpuscular Volume 82.7 fL (78.0-98.0); Platelet Count 243 10x3/uL (130-400); Red Blood Cell (RBC) Count 3.64 mill/uL (4.20-5.40); White Blood Cell (WBC) Count 5.99 10x3/uL (4.8-10.8)
[2025-04-18 06:13] LABS: Anion Gap 13 mmol/L (10-20); BUN (Urea Nitrogen) 62 mg/dL (9.8-20.1); Calc. Creatinine Clearance 48 mL/min (70-130); Calcium 9.8 mg/dL (7.8-10.44); Carbon Dioxide 29 mmol/L (23-31); Chloride 99 mmol/L (98-107); Glucose 140 mg/dL (83-110); Potassium 4.6 mmol/L (3.5-5.1); Sodium 136 mmol/L (136-145)
[2025-04-18] MEDS: cefTRIAXone\\ROCEPHIN 2 GM in Sodium Chloride 0.9% 100 ML IVPB SCH (11:53)
[2025-04-22] MEDS: metFORMIN 500 MG TAB PO SCH (09:06)
[2025-04-22 16:43] VITALS: BP 132/75; TEMP 98.1
== END 2025-04-22 17:17 | disposition home health service (06) | DRG 871 ==
LOC: ERS 12:45 → SUATTDRO 12:45 → ERHOLD 15:28 → IMCU/EMU 18:21 → MSONC 03-27 16:35
PROVIDERS: ADMIT Family Medicine; ATTEND Hospitalist
PROC: XX20X89 Monitoring of Brain Electrical Activity, Computer-aided Detection and Notification, New Technology Group 9 (ICD-10-PCS; principal; 2025-03-25)
PROC: XX20X89 Monitoring of Brain Electrical Activity, Computer-aided Detection and Notification, New Technology Group 9 (ICD-10-PCS; 2025-03-26)
PROC: 3E03329 Introduction of Other Anti-infective into Peripheral Vein, Percutaneous Approach (ICD-10-PCS; 2025-04-18)
DX: A41.9 Sepsis, unspecified organism (principal); E11.00 Type 2 diabetes mellitus with hyperosmolarity without nonketotic hyperglycemic-hyperosmolar coma (NKHHC); R65.21 Severe sepsis with septic shock; G93.41 Metabolic encephalopathy; I63.9 Cerebral infarction, unspecified; L97.419 Non-pressure chronic ulcer of right heel and midfoot with unspecified severity; G81.91 Hemiplegia, unspecified affecting right dominant side; N17.9 Acute kidney failure, unspecified; E87.20 Acidosis, unspecified; N39.0 Urinary tract infection, site not specified; Z51.5 Encounter for palliative care; E78.00 Pure hypercholesterolemia, unspecified; I10 Essential (primary) hypertension; Z85.3 Personal history of malignant neoplasm of breast; Z98.890 Other specified postprocedural states; F03.C0 Unspecified dementia, severe, without behavioral disturbance, psychotic disturbance, mood disturbance, and anxiety; E87.5 Hyperkalemia; E11.65 Type 2 diabetes mellitus with hyperglycemia; D64.9 Anemia, unspecified; R62.7 Adult failure to thrive; R13.10 Dysphagia, unspecified; E86.0 Dehydration; E86.1 Hypovolemia; B96.20 Unspecified Escherichia coli [E. coli] as the cause of diseases classified elsewhere; Z79.899 Other long term (current) drug therapy; Z79.82 Long term (current) use of aspirin
CPT/HCPCS: 36415; 36416; 51702; 70450; 71045; 80048; 80177; 80202; 81001; 82010; 82274; 82805; 83036; 83605; 83690; 83735; 83930; 84100; 84443; 84484; 85025; 85610; 85730; 87040; 87077; 87081; 87086; 87186; 87637; 93005; 95812; 95813; 95816; 96374; 96375; 97139; J0290; J0692; J0696; J1815; J3373; J3375; J3475; J3480; J7050; J7120

== ENCOUNTER 2025-05-18 20:33 | Emergency (ER) | payer MEDICARE ==
[2025-05-18] MEDS ORDERED: EPINEPHrine 1 MG/10 ML Abboject SYRINGE ONE (20:37)
[2025-05-18] MEDS ORDERED: Calcium Chloride 1 GM/10 ML Abboject SYRINGE ONE (20:37)
== END 2025-05-18 20:43 | disposition expired ==
LOC: ERS 20:33
DX: I46.9 Cardiac arrest, cause unspecified (principal); I10 Essential (primary) hypertension; E78.5 Hyperlipidemia, unspecified
CPT/HCPCS: 31500; 92950; 96374; 96375; 99285; J0165